=== PATIENT | female | born 1990 | race African-American/Black ===

== ENCOUNTER 2017-04-25 20:30 | Emergency (ER) | payer MEDICARE, MEDICAID, SELFPAY ==
[2017-04-25 20:31] VITALS: BP 94/60; PULSE 79; RESP 16; TEMP 36.4; O2SAT 98; BMI 24.6
--- NOTE | 2017-04-25 20:53 | EKG12_ITS ---
Test Reason : DIZZINESS Blood Pressure : / mmHG Vent. Rate : 078 BPM Atrial Rate : 078 BPM P-R Int : 154 ms QRS Dur : 086 ms QT Int : 388 ms P-R-T Axes : 065 062 039 degrees QTc Int : 442 ms Normal sinus rhythm with sinus arrhythmia Normal ECG Confirmed by JEFF العراقي, KAREN ([id number]), editor managing newspaper HEATHER NIXON ([id number]) on 04/29/2017 3:25:34 PM Referred By: LISANDRO Confirmed By:KAREN AGUILAR MD
[2017-04-25 20:59] LABS: Bacteria 0 SEEN /hpf (None Seen); Mucous, Urine 0 SEEN /hpf (<or=2+); Red Blood Cells-Urine 0 SEEN /hpf (0-5)
[2017-04-25 21:04] LABS: Color, Urine Yellow (Yellow); Glucose, Dipstick Normal (Normal); Ketone-Dipstick Negative (Negative); Leukocyte Esterase-Dipstick 25 /ul (Negative); Nitrite-Dipstick Negative (Negative); Occult Blood-Urine Negative /ul (Negative); Protein-Dipstick 15 mg/dl (Negative); Specific Gravity, Urine 1.005 (1.002-1.030); Urine Bilirubin Dipstick Negative (Negative); Urine Clarity Sl. Cloudy (Clear); Urine Urobilinogen 1 mg/dl (Normal)
[2017-04-25 21:12] LABS: Squamous Epithelial Cells - UA 10-25 SEEN /hpf (5-10); White Blood Cells 0-5 SEEN /hpf (0-5)
[2017-04-25 21:14] LABS: Absolute Lymphocyte Count 1.78 X10^3/ul (0.83-4.51); Absolute Neutrophil Count 9.1 X10^3/uL (2.0-7.7); Basophil# 0.02 X10^3/uL; Basophil% 0.2 % (0-1); Eosinophil# 0.05 X10^3/uL; Eosinophils% 0.4 % (0-5); Hematocrit 28.8 % (37-47); Hemoglobin 8.3 g/dl (12.0-15.0); Lymphocyte # 1.78 X10^3/ul (4.0); Lymphocyte % 15.1 % (19-41); Mean Corp Hgb Conc 28.8 g/gl (32-36); Mean Corpuscular Hgb 20.8 pg (27.0-32.0); Mean Corpuscular Volume 72.2 fL (81-99); Mean Platelet Vol. 9.7 fl (6.2-12.0); Monocyte# 0.69 X10^3/uL; Monocyte% 5.9 % (0-10); Neutrophil # 9.14 X10^3/uL (2.7-7.7); Neutrophil % 77.6 % (47-70); Platelet Count 172 K/mm3 (150-450); RBC Distribution Width CV 17.7 % (11.6-14.6); RBC Distribution Width SD 46.9 fl (35.1-43.9); Red Blood Count 3.99 M/mm3 (4.2-5.4); White Blood Count 11.8 K/mm3 (4.4-11.0)
[2017-04-25 21:15] LABS: Differential Indicated SCAN CRITERIA MET; POSITIVE COUNT NO; POSITIVE DIFFERENTIAL NO; POSITIVE MORPHOLOGY YES
[2017-04-25] MEDS: 0.9% Normal Saline 1,000 ML 1000 ML IV (21:22)
[2017-04-25 21:25] LABS: Anion Gap 10 (5-15); BUN 8 mg/dL (7-18); BUN/Creat Ratio 11.6 RATIO (10-20); Calcium,Total 8.6 mg/dL (8.5-10.1); Chloride 106 mmol/L (98-107); Creatinine, Serum 0.69 mg/dL (0.55-1.02); EST Glomerular Filtration Rate 109 mL/min (>60); Est Glom Filt Rate - Afr Amer 132 mL/min (>60); Estimated Creatinine Clearance 102.21 ml/min; Glucose 87 mg/dL (70-110); Potassium 3.9 mmol/L (3.5-5.1); Sodium Level 137 mmol/L (136-145)
[2017-04-25 21:30] LABS: Differential Comment SCANNED
--- NOTE | 2017-04-25 22:08 | ED.VISSUMM ---
- ER Visit Summary Date of Service: 04/25/17 Chief Complaint: Dizzy and low blood pressure History of Present Illness: The patient is a 26 F who is currently 37 weeks . She states she has had intermittent episodes of dizziness and near syncope for the past couple of weeks. Patient states her blood pressure normally runs low and more so when she is . She states her systolic blood pressure was 90 in the office last week. She has felt normal movement. She denies palpitations. Physical Examination: Blood pressure is 94/60, temperature 97.6, heart rate 76, respiratory rate 16, pulse ox 98% on room air. Patient sitting upright in bed no acute distress. She is alert and talkative. Heart is regular rate and rhythm. Lung sounds are clear. Abdomen is soft and gravid. No focal tenderness. Test Results: EKG is sinus at 78 with no sign of acute ischemia. CBC was a white count 11.8 with a hemoglobin of 8.3. Chemistry studies are unremarkable. Urinalysis shows no sign of acute infection. No ketones are noted. heart tones are 160. Emergency Department Course and Treatment: Patient was observed on electronic device monitor with no arrhythmias noted. She was given IV fluids. Repeat systolic blood pressures between 100 and 106 systolic. I spoke with Dr. Lee, on-call for Dr. Aragon. Patient has an appointment in the office tomorrow. She is to follow-up tomorrow as planned and may need to consider IV iron due to her anemia. She states that will all be discussed tomorrow. Patient voices her understanding and agreement. Treatment Plan: [] Disposition: Discharge Impression: 1. Hypotension, improved 2. Anemia 3. Third trimester 4. Intermittent dizziness This note was generated with [employer] dictation software. It may contain incorrect words, spelling, and punctuation that were not noted in review of the chart prior to signing ED Disposition - Plan for ED Patient: Disposition: Home or Assisted Living Chief Complaint: Dizziness Instructions: ED Anemia Type Not Specified, ED Dizziness UKO Referrals: Bren Soto MD [STAFF PHYSICIAN] - Keep Nicolasa appointment
--- NOTE | 2017-04-25 22:08 | ED.DEP ---
ED Disposition - Plan for ED Patient: Disposition: Home or Assisted Living Chief Complaint: Dizziness Instructions: ED Dizziness UKO, ED Anemia Type Not Specified Referrals: Bren Soto MD [STAFF PHYSICIAN] - Keep Nicolasa appointment
[2017-04-25 22:17] VITALS: BP 101/67; PULSE 81; RESP 16; O2SAT 99
--- NOTE | 2017-04-25 22:18 | ED.RN ---
REVIEWED D/C INSTRUCTIONS, FOLLOW UP CARE, AND S/S THAT WOULD WARRANT A RETURN TO THE ED WITH PT. PT VERBALIZED AN UNDERSTANDING AND DENIES FURTHER QUESTIONS FOR THIS RN. PT SKIN WARM AND DRY, RESP EVEN AND UNLABORED, PT A&O X 3, NO DISTRESS NOTED. PT AMBULATED OUT OF ED, GAIT STEADY.
== END 2017-04-25 22:19 | disposition home or self-care (01) ==
PROVIDERS: Emergency Provider Emergency Medicine; Family Provider Family Medicine; PCP Family Medicine
DX: O26.893 Other specified pregnancy related conditions, third trimester (principal); I95.9 Hypotension, unspecified; R42 Dizziness and giddiness; O99.013 Anemia complicating pregnancy, third trimester; Z3A.37 37 weeks gestation of pregnancy
CPT/HCPCS: 80048; 81001; 85025; 93005; 96360; 99284; J7030; A4216

== ENCOUNTER 2017-05-08 10:00 | Inpatient (IN) | payer MEDICARE, MEDICAID, SELFPAY ==
[2017-05-02 13:32] VITALS: BMI 25.6
[2017-05-08] VITALS (20 sets, daily range): BP systolic 79–98; BP diastolic 33–61; PULSE 54–77; RESP 12–18; TEMP 36.2–37.1; O2SAT 95–100; BMI 25.6
[2017-05-08] MEDS: 0.9% Saline Lock 10 ML Syringe IV (10:15)
[2017-05-08] MEDS: Lactated Ringers 1,000 ML 999 ML IV (10:15)
[2017-05-08 10:39] LABS: Absolute Lymphocyte Count 2.24 X10^3/ul (0.83-4.51); Absolute Neutrophil Count 10.4 X10^3/uL (2.0-7.7); Basophil# 0.03 X10^3/uL; Basophil% 0.2 % (0-1); Differential Indicated SCAN CRITERIA MET; Eosinophil# 0.06 X10^3/uL; Eosinophils% 0.4 % (0-5); Hematocrit 28.2 % (37-47); Hemoglobin 8.4 g/dl (12.0-15.0); Lymphocyte # 2.24 X10^3/ul (4.0); Lymphocyte % 15.9 % (19-41); Mean Corp Hgb Conc 29.8 g/gl (32-36); Mean Corpuscular Hgb 21.6 pg (27.0-32.0); Mean Corpuscular Volume 72.7 fL (81-99); Mean Platelet Vol. 10.8 fl (6.2-12.0); Monocyte# 0.99 X10^3/uL; Neutrophil # 10.43 X10^3/uL (2.7-7.7); Neutrophil % 73.8 % (47-70); POSITIVE COUNT YES; POSITIVE DIFFERENTIAL NO; POSITIVE MORPHOLOGY YES; Platelet Count 233 K/mm3 (150-450); RBC Distribution Width CV 18.5 % (11.6-14.6); Red Blood Count 3.88 M/mm3 (4.2-5.4); White Blood Count 14.1 K/mm3 (4.4-11.0)
[2017-05-08 10:57] LABS: Anisocytosis 2+
[2017-05-08 10:58] LABS: Polychromasia 1+
[2017-05-08] MEDS: Lactated Ringers 1,000 ML 150 ML IV (11:18)
[2017-05-08] MEDS: Sodium Citrate/Citric Acid 30 ML UDC PO (11:43)
[2017-05-08] MEDS: Cefazolin 2 GM in 0.9% Normal Saline 100 ML IV (11:53)
[2017-05-08] MEDS: Oxytocin 30 units/NS 500 ml 30 UNITS/500 ML IV.SOLN 167 UNITS IV (12:34)
--- NOTE | 2017-05-08 13:07 | OP.PCM_ITS ---
Operative Report Date of Procedure: 05/08/17 Surgeon: Dr. Bren Soto Chief Power Dispatcher: DANIAL Pérez Procedure performed: Repeat Low Transverse section Anesthesia: Spinal Preoperative diagnosis: Term gestation 39 weeks gestation for an elective repeat section Postoperative Diagnosis: same- live male Findings: Live male infant born without complication. Clear fluid. Delayed cord clamping performed. Normal tubes and ovaries bilaterally. Good hemostasis throughout case. 2 Peripheral IVs started PRE OP due to anemia- Minimal blood loss during case. EBL: 600 cc Implantable devices: None Operative note: After informed consent was obtained the patient was taken to the operating room she was given spinal anesthesia. He was placed in the supine position. She was then prepped and draped in normal sterile fashion. Once spinal anesthesia was found to be adequate skin incision was made with a scalpel in a elliptical fashion to excise old scar. Incision was carried down to the underlying layer of the fascia. Fascia was then incised midline with scalpel and extended laterally using curved baker. 2 straight Cristian's were placed in the superior aspect of the fascial edge and the rectus muscles were dissected off sharply. Attention was then turned to the inferior aspect where again the fascial edge was grasped with 2 straight Clinton clamps tented up and the rectus muscle dissected off sharply. At this time the rectus muscles were grasped in the midline using 2 Allis clamps and scalpel was used to separate the rectus muscles. Using blunt force the peritoneum was then entered. Metzenbaums were used to take down the rectus muscles inferiorly as well as the peritoneum. At this time the vesicouterine peritoneum was identified. Metzenbaum scissors were used to create a bladder flap and then taken down digitally. Uterine incision was made in a low transverse fashion with the scalpel and then entered bluntly. Gentle opposing traction was placed to extend the uterine incision. The membranes were ruptured amniotic fluid clear. 's head was then brought to the uterine incision was delivered atraumatically followed by the rest infant's body. At this time delayed cord clamping was performed mouth nose were suctioned. was then handed to the waiting nursery team. The placenta was then removed with gentle traction. The uterus was removed from the intra-abdominal cavity is wrapped in a moist lap. He was cleared of all clots and debris using a moist lap. Ring clamps were placed on the uterine angles. #1 Vicryl suture was used in a running locked fashion for the first layer. Posterior culdesac cleared of clots. At this time then the uterus was placed back into abdominal cavity uterine incision was evaluated and noted to be of good hemostasis. Tubes and ovaries were evaluated they were normal. Great hemostasis was appreciated at this time the uterine incision was again evaluated good hemostasis was appreciated. Jocy placed over each layer. The peritoneum was grasped with Kellys. Peritoneum was reapproximated using #2 Vicryl suture in a running fashion. Muscle was then reapproximated using #2 Vicryl in an interrupted mattress suture fashion. The fascia was then reapproximated using #1 Vicryl in a running fashion. Subcutaneous layer was evaluated and Bovie was used for any small oozing that was noted per #2-0 plain gut suture was then used to reapproximate the subcutaneous layer 4-0 Vicryl on a Bryant needle was used to reapproximate the skin in a subcutaneous fashion. Dry sterile dressing was applied. Instrument lap needle count were correct ?2. Anticipated normal postoperative course for this patient.
[2017-05-08] MEDS: Lactated Ringers 1,000 ML 100 ML IV ×3 (13:10→21:14)
[2017-05-08] MEDS: Ondansetron 4 MG/2 ML Vial IV (16:44)
[2017-05-09] VITALS (17 sets, daily range): BP systolic 87–105; BP diastolic 43–57; PULSE 60–89; RESP 16–20; TEMP 36.4–37.1; O2SAT 97–100
[2017-05-09] MEDS: Ketorolac 30 MG/ML Syringe IV ×4 (00:26→21:42)
[2017-05-09] MEDS: 0.9% Saline Lock 10 ML Syringe IV ×4 (00:26→21:42)
[2017-05-09] MEDS: Lactated Ringers 1,000 ML 100 ML IV (06:32)
[2017-05-09 06:51] LABS: Hematocrit 22.3 % (37-47); Hemoglobin 6.5 g/dl (12.0-15.0); Mean Corp Hgb Conc 29.1 g/gl (32-36); Mean Corpuscular Hgb 21.3 pg (27.0-32.0); Mean Corpuscular Volume 73.1 fL (81-99); Mean Platelet Vol. 8.9 fl (6.2-12.0); Platelet Count 157 K/mm3 (150-450); RBC Distribution Width CV 18.4 % (11.6-14.6); RBC Distribution Width SD 48.1 fl (35.1-43.9); Red Blood Count 3.05 M/mm3 (4.2-5.4); White Blood Count 15.5 K/mm3 (4.4-11.0)
[2017-05-09 06:57] LABS: Scan Indicated on CBC? Y/N YES- FLAGS NOTED
[2017-05-09 07:28] LABS: Differential Comment SCAN
[2017-05-09] MEDS: Ferrous Sulfate 325 MG Tablet PO ×3 (08:16→17:50)
--- NOTE | 2017-05-09 08:51 | PCM.PN.OB ---
Subjective: pt seen at bedside, doing well. pt reports good pain control. lochia mild. Jara in place. pt reports passing flatus. Pt denies CP, SOB, dizziness or palpitations - Physical Exam General: Alert, Oriented x3 Abdomen: Soft, Non-Distended, - - fundus firm. Incision dressing with small area old dark blood noted but otherwise dry. Extremities: No Calf Tenderness Vital Signs Temp Pulse Resp BP Pulse Ox 98.6 F 60 16 91/44 L 100 05/09/17 08:15 05/09/17 08:15 05/09/17 08:15 05/09/17 08:15 05/09/17 08:15 Oxygen Delivery Method Room Air Weight: 65.7 kg Body Mass Index (BMI) 25.6 Intake and Output for Last 24 Hours 05/07/17 05/08/17 05/09/17 23:59 23:59 23:59 Intake Total 5379 / 5379 1689 / 1689 Output Total 700 / 700 1100 / 1100 Balance 4679 / 4679 589 / 589 Laboratory Tests Past 24 Hrs 05/08/17 05/08/17 05/08/17 10:10 10:10 10:10 WBC 14.1 H RBC 3.88 L Hgb 8.4 L Hct 28.2 L MCV 72.7 L MCH 21.6 L MCHC 29.8 L RDW 18.5 H RDW Differential 47.0 H Plt Count 233 MPV 10.8 Immature Gran % (Auto) 2.700 H Neut % (Auto) 73.8 H Lymph % (Auto) 15.9 L [place] % (Auto) 7.0 Eos % (Auto) 0.4 Baso % (Auto) 0.2 Absolute Neuts (auto) 10.4 H Absolute Lymphs (auto) 2.24 Total Counted Not Reportable Differential Comment Diff Path Review May foll Polychromasia 1+ Anisocytosis 2+ Blood Type AB POSITIVE Antibody Screen NEGATIVE Crossmatch See Detail 05/09/17 06:35 WBC 15.5 H RBC 3.05 L Hgb 6.5 L Hct 22.3 L MCV 73.1 L MCH 21.3 L MCHC 29.1 L RDW 18.4 H RDW Differential 48.1 H Plt Count 157 MPV 8.9 Immature Gran % (Auto) Neut % (Auto) Lymph % (Auto) [place] % (Auto) Eos % (Auto) Baso % (Auto) Absolute Neuts (auto) Absolute Lymphs (auto) Total Counted Differential Comment SCAN Diff Path Review Polychromasia Anisocytosis Blood Type Antibody Screen Crossmatch Assessment/Plan POD#1, doing well- acute on Chronic anemia- asymptomatic 1) discussed PRBC transfusion low hg/hct- benefits of receiving blood reviewed with patient. Pt currently receiving IV iron with [facility] 2) will give 2u PRBC 3) dc jara 4) ambulation 5) pain mgmt 6) recheck CBC 4 hrs after last unit
[2017-05-09 09:19] LABS: Pathologist Review Reviewed
[2017-05-09] MEDS: Docusate Sodium 100 MG Capsule PO (09:55)
[2017-05-09 19:06] LABS: Hemoglobin 9.1 g/dl (12.0-15.0); Mean Corp Hgb Conc 31.4 g/gl (32-36); Mean Corpuscular Hgb 24.1 pg (27.0-32.0); Mean Corpuscular Volume 76.7 fL (81-99); Mean Platelet Vol. 10.1 fl (6.2-12.0); Platelet Count 191 K/mm3 (150-450); RBC Distribution Width CV 18.8 % (11.6-14.6); RBC Distribution Width SD 49.3 fl (35.1-43.9); Red Blood Count 3.78 M/mm3 (4.2-5.4); Scan Indicated on CBC? Y/N NO; White Blood Count 15.3 K/mm3 (4.4-11.0)
[2017-05-10] MEDS: Ketorolac 30 MG/ML Syringe IV ×2 (02:52→09:35)
[2017-05-10] MEDS: 0.9% Saline Lock 10 ML Syringe IV ×2 (02:52→02:53)
[2017-05-10 03:00] VITALS: BP 103/56; PULSE 68; RESP 16; TEMP 36.6
[2017-05-10 05:26] LABS: Hematocrit 28.4 % (37-47); Hemoglobin 8.7 g/dl (12.0-15.0); Mean Corp Hgb Conc 30.6 g/gl (32-36); Mean Corpuscular Hgb 23.5 pg (27.0-32.0); Mean Corpuscular Volume 76.8 fL (81-99); Mean Platelet Vol. 9.2 fl (6.2-12.0); Platelet Count 153 K/mm3 (150-450); RBC Distribution Width CV 18.8 % (11.6-14.6); RBC Distribution Width SD 51.2 fl (35.1-43.9)
[2017-05-10 05:28] LABS: Scan Indicated on CBC? Y/N NO
[2017-05-10 08:00] VITALS: BP 102/57; PULSE 61; RESP 16; TEMP 36.8; O2SAT 98
--- NOTE | 2017-05-10 08:52 | PCM.PN.OB ---
Subjective: pain well controlled, average lochia - Physical Exam General: Alert, Cooperative, No apparent distress Abdomen: Soft, Non-Distended, Tender - appropriately Skin: - - bandage w/ some dried sanguinous blood Vital Signs Temp Pulse Resp BP Pulse Ox 97.8 F 68 16 103/56 L 98 05/10/17 03:00 05/10/17 03:00 05/10/17 03:00 05/10/17 03:00 05/09/17 15:10 Oxygen Delivery Method Room Air Weight: 65.7 kg Body Mass Index (BMI) 25.6 Intake and Output for Last 24 Hours 05/08/17 05/09/17 05/10/17 23:59 23:59 23:59 Intake Total 5379 / 5379 4521 / 4521 Output Total 700 / 700 2850 / 2850 Balance 4679 / 4679 1671 / 1671 Laboratory Tests Past 24 Hrs 05/08/17 05/08/17 05/09/17 10:10 10:10 18:50 WBC 15.3 H RBC 3.78 L Hgb 9.1 L Hct 29.0 L MCV 76.7 L MCH 24.1 L MCHC 31.4 L RDW 18.8 H RDW Differential 49.3 H Plt Count 191 MPV 10.1 Diff Path Review Reviewed Crossmatch See Detail 05/10/17 05:15 WBC 15.0 H RBC 3.70 L Hgb 8.7 L Hct 28.4 L MCV 76.8 L MCH 23.5 L MCHC 30.6 L RDW 18.8 H RDW Differential 51.2 H Plt Count 153 MPV 9.2 Diff Path Review Crossmatch Assessment/Plan PPD#2 doing well pumping some breastmilk desires d/c home
--- NOTE | 2017-05-10 08:54 | PCM.PN.OB ---
Subjective: Denies GONZALEZ or SOB, no cough. No CP or palpitations. No lightheadedness. + flatus, ebony. regular diet - Physical Exam General: Alert, Cooperative, No apparent distress Abdomen: Soft, Non-Distended, Tender - appropriately Skin: Incision - some sanguinous drainage on bandage Vital Signs Temp Pulse Resp BP Pulse Ox 97.8 F 68 16 103/56 L 98 05/10/17 03:00 05/10/17 03:00 05/10/17 03:00 05/10/17 03:00 05/09/17 15:10 Oxygen Delivery Method Room Air Weight: 65.7 kg Body Mass Index (BMI) 25.6 Intake and Output for Last 24 Hours 05/08/17 05/09/17 05/10/17 23:59 23:59 23:59 Intake Total 5379 / 5379 4521 / 4521 Output Total 700 / 700 2850 / 2850 Balance 4679 / 4679 1671 / 1671 Laboratory Tests Past 24 Hrs 05/08/17 05/08/17 05/09/17 10:10 10:10 18:50 WBC 15.3 H RBC 3.78 L Hgb 9.1 L Hct 29.0 L MCV 76.7 L MCH 24.1 L MCHC 31.4 L RDW 18.8 H RDW Differential 49.3 H Plt Count 191 MPV 10.1 Diff Path Review Reviewed Crossmatch See Detail 05/10/17 05:15 WBC 15.0 H RBC 3.70 L Hgb 8.7 L Hct 28.4 L MCV 76.8 L MCH 23.5 L MCHC 30.6 L RDW 18.8 H RDW Differential 51.2 H Plt Count 153 MPV 9.2 Diff Path Review Crossmatch Assessment/Plan POD#2 doing well ready for d/c chronic anemia, s/p transfusion 2 units, HGB same as preop. F/u postop for IVfe infant doing well
--- NOTE | 2017-05-10 09:05 | DCINST_ITS ---
Discharge Diet: No Restrictions Discharge Activity: Return to Normal Activity, May Not Drive - for 2 weeks, May not drive while taking narcotic pain medications., May Shower, May Take a Tub Bath - in 7 days. May resume sexual activity in: 4-6 weeks Lifting Restrictions: 20 pounds Additional Activity Instructions:: Nothing in the vagina for 4-6 weeks. You may return to work/school in 6 weeks. Call your doctor if your incision/area has: Continuous Slow Oozing, Sudden Increased Bleeding, Increased Pain/ Swelling, Increased Redness, Foul Smelling Discharge Call your doctor if you observe: Fever of 101 or Higher, Using more than one pad per hour - for 2 hours Suture Line Care: Avoid Pulling/Pushing, Avoid Pinching/Bending Cleanse incision/area with: Keep Dressing Clean & Dry Additional Instructions: If you experience any of the following, contact your healthcare provider. * Bleeding that soaks a pad every hour for 2 hours * Fever 100.4 or higher * Unrelieved incision or abdominal pain * Swelling, redness, discharge or bleeding from your incision or episiotomy site * Your incision begins to separate * Problems urinating (including inability to urinate or burning while urinating) . * Visual changes * Severe headache * Flu-like symptoms * Pain or redness in one of both of your breasts * Pain, warmth, tenderness or swelling in your legs, especially the calf area * Frequent nausea and vomiting * Symptoms of depression or anxiety If you experience any of the following, call 911 or go to the nearest Emergency Room. * Chest pain * Problems breathing * Seizure activity * Partial or complete paralysis of a body part, slurred speech, weakness or drooping of the face, or a sudden inability to walk or hold your balance Allergies/Adverse Reactions: Allergies No Known Allergies Allergy (Verified 04/25/17 20:33) Medications to take at Discharge Docusate Sodium [Colace] 100 mg PO BID PRN PRN #30 cap 05/10/17 Ibuprofen [Motrin] 800 mg PO TID PRN PRN #60 tab 05/10/17 Oxycodone HCl/Acetaminophen [Percocet 5/325] 1 - 2 tablet PO Q6H PRN PRN 7 Days #28 tablet 05/10/17 Pnv95/Ferrous Fumarate/FA [ Formula] 1 ea PO DAILY #30 tab 05/10/17 The following prescriptions were given: Oxycodone HCl/Acetaminophen [Percocet 5/325] 1 - 2 tablet PO Q6H PRN PRN 7 Days #28 tablet PRN Reason: Pain Docusate Sodium [Colace] 100 mg PO BID PRN PRN #30 cap PRN Reason: Constipation Ibuprofen [Motrin] 800 mg PO TID PRN PRN #60 tab PRN Reason: Pain Pnv95/Ferrous Fumarate/FA [ Formula] 1 ea PO DAILY #30 tab Follow-Up: Call to make an appointment with your doctor for an incision check in 1-2 weeks. You will also need a 6 week post- follow up appointment. Please Follow Up With: Bren Soto MD - Call to make an appointment for an incision check in 1-2 [phone] When: You will need a post check in 6 weeks. Primary Care Physician: Miquel Weller MD [Primary Care Provider] -
[2017-05-10] MEDS: Docusate Sodium 100 MG Capsule PO (09:36)
[2017-05-10] MEDS: Ferrous Sulfate 325 MG Tablet PO ×2 (09:36→13:22)
[2017-05-10 13:00] VITALS: BP 111/56; PULSE 73; RESP 16; TEMP 36.7; O2SAT 97
--- NOTE | 2017-05-10 14:15 | NURSING ---
baby bands verified by nurse and mother. mother signed baby discharge sheet
--- NOTE | 2017-05-11 10:34 | PCM.DC.SUM ---
Discharge Date and Diagnosis Date of Admission: 05/08/17 Date of Discharge: 05/10/17 Hospital Course and Treatment Operations: - - Low transverse section Via Pfannenstiel skin incision Procedures: None Summary of Care Provided: The patient is a 26 year old female admitted for repeat section. This was performed on 05/08/2017 without difficulty. She had chronic iron deficiency anemia. Her hemoglobin dropped postoperatively. Remained asymptomatic but her hematocrit was under 20. She was transfused 2 units. Her hemoglobin and hematocrit stabilized to near preop levels. She was discharged home on postoperative day #2 at her request. She was tolerating anemia well. She is to continue vitamins. She is to also follow-up for IV iron supplementation. He was given routine instructions and prescriptions and she is to follow-up in our office in 1-2 and 6 weeks or as needed. [] Discharge Diet: No Restrictions Discharge Activity: Return to Normal Activity, May Not Drive - for 2 weeks, May not drive while taking narcotic pain medications., May Shower, May Take a Tub Bath - in 7 days. May resume sexual activity in: 4-6 weeks Additional Activity Instructions:: Nothing in the vagina for 4-6 weeks. You may return to work/school in 6 weeks. Call your doctor if your incision/area has: Continuous Slow Oozing, Sudden Increased Bleeding, Increased Pain/ Swelling, Increased Redness, Foul Smelling Discharge Call your doctor if you observe: Fever of 101 or Higher, Using more than one pad per hour - for 2 hours Suture Line Care: Avoid Pulling/Pushing, Avoid Pinching/Bending Cleanse incision/area with: Keep Dressing Clean & Dry Home Medications: Medications to take at Discharge Docusate Sodium [Colace] 100 mg PO BID PRN PRN #30 cap 05/10/17 Ibuprofen [Motrin] 800 mg PO TID PRN PRN #60 tab 05/10/17 Oxycodone HCl/Acetaminophen [Percocet 5/325] 1 - 2 tablet PO Q6H PRN PRN 7 Days #28 tablet 05/10/17 Pnv95/Ferrous Fumarate/FA [ Formula] 1 ea PO DAILY #30 tab 05/10/17 Following Prescrptions Were Given to Patient: Oxycodone HCl/Acetaminophen [Percocet 5/325] 1 - 2 tablet PO Q6H PRN PRN 7 Days #28 tablet PRN Reason: Pain Docusate Sodium [Colace] 100 mg PO BID PRN PRN #30 cap PRN Reason: Constipation Ibuprofen [Motrin] 800 mg PO TID PRN PRN #60 tab PRN Reason: Pain Pnv95/Ferrous Fumarate/FA [ Formula] 1 ea PO DAILY #30 tab Primary Care Physician: Miquel Weller MD [Primary Care Provider] - Please Follow Up With: Bren Soto MD When: Call to make an appointment for an incision check in 1-2 weeks. Meaningful Use Info Meaningful Use Diagnoses (Choose all that apply): None applicable
== END 2017-05-10 14:25 | disposition home or self-care (01) | DRG 765 ==
PROVIDERS: Advanced Practice Midwife; Admitting Provider Obstetrics & Gynecology; Family Provider Family Medicine; PCP Family Medicine; Visit Provider Obstetrics & Gynecology
DX: O34.211 Maternal care for low transverse scar from previous cesarean delivery (principal); D62 Acute posthemorrhagic anemia; O99.02 Anemia complicating childbirth; D50.9 Iron deficiency anemia, unspecified; Z3A.39 39 weeks gestation of pregnancy; Z37.0 Single live birth
CPT/HCPCS: 85025; 85027; 86850; 86900; 86920; 86922; 94762; 99218; J7040; J7120; P9016; 90686; A4216; G0378; J2405

== ENCOUNTER 2017-05-13 19:15 | Inpatient (IN) | payer MEDICARE, MEDICAID, SELFPAY ==
[2017-05-13] VITALS (11 sets, daily range): BP systolic 122–160; BP diastolic 83–108; PULSE 51–66; RESP 12–20; TEMP 36.6–36.7; O2SAT 98–100; BMI 24.8
--- NOTE | 2017-05-13 19:26 | NURSING ---
RN CALLED FOR EKG,L PULLED OLD EKG'S FOR
[2017-05-13 21:28] LABS: Bacteria 0 SEEN /hpf (None Seen); Mucous, Urine 0 SEEN /hpf (<or=2+)
[2017-05-13 21:32] LABS: Color, Urine Red (Yellow); Glucose, Dipstick Normal (Normal); Ketone-Dipstick 5 mg/dl (Negative); Leukocyte Esterase-Dipstick 100 /ul (Negative); Nitrite-Dipstick Negative (Negative); Occult Blood-Urine 250 /ul (Negative); Protein-Dipstick 100 mg/dl (Negative); Urine Bilirubin Dipstick Negative (Negative); Urine Clarity Cloudy (Clear); Urine Urobilinogen 4 mg/dl (Normal)
[2017-05-13 21:39] LABS: Absolute Lymphocyte Count 2.16 X10^3/ul (0.83-4.51); Absolute Neutrophil Count 6.9 X10^3/uL (2.0-7.7); Basophil# 0.02 X10^3/uL; Basophil% 0.2 % (0-1); Differential Indicated SCAN CRITERIA MET; Eosinophil# 0.14 X10^3/uL; Eosinophils% 1.4 % (0-5); Hematocrit 33.1 % (37-47); Lymphocyte # 2.16 X10^3/ul (4.0); Lymphocyte % 22.3 % (19-41); Mean Corp Hgb Conc 30.2 g/gl (32-36); Mean Corpuscular Hgb 23.6 pg (27.0-32.0); Mean Corpuscular Volume 78.3 fL (81-99); Mean Platelet Vol. 9.8 fl (6.2-12.0); Monocyte# 0.44 X10^3/uL; Monocyte% 4.5 % (0-10); Neutrophil # 6.89 X10^3/uL (2.7-7.7); Neutrophil % 71.2 % (47-70); POSITIVE COUNT NO; POSITIVE DIFFERENTIAL NO; POSITIVE MORPHOLOGY YES; Platelet Count 217 K/mm3 (150-450); RBC Distribution Width SD 55.1 fl (35.1-43.9); Red Blood Count 4.23 M/mm3 (4.2-5.4); White Blood Count 9.7 K/mm3 (4.4-11.0)
[2017-05-13 21:40] LABS: Prothrombin Time (Protime)PT. 13.2 SECONDS (11.7-14.9)
[2017-05-13 21:41] LABS: Red Blood Cells-Urine > 100 SEEN /hpf (0-5); White Blood Cells 10-25 SEEN /hpf (0-5)
[2017-05-13 21:41] LABS: Partial Thromboplast Time 30.9 Seconds (24.1-36.2)
[2017-05-13 21:42] LABS: Squamous Epithelial Cells - UA 0-5 SEEN /hpf (5-10)
[2017-05-13 21:51] LABS: ALB/GLOB Ratio 0.7 RATIO (0.9-2.4); AST(SGOT) 49 U/L (15-37); Alanine Aminotransfer ALT/SGPT 77 U/L (13-56); Albumin, Serum 2.9 g/dL (3.2-5.0); Alkaline Phosphatase 117 U/L (45-117); Anion Gap 5 (5-15); BUN 12 mg/dL (7-18); BUN/Creat Ratio 18.1 RATIO (10-20); Calcium,Total 8.4 mg/dL (8.5-10.1); Chloride 109 mmol/L (98-107); Creatinine, Serum 0.66 mg/dL (0.55-1.02); EST Glomerular Filtration Rate 114 mL/min (>60); Est Glom Filt Rate - Afr Amer 138 mL/min (>60); Estimated Creatinine Clearance 106.85 ml/min; Globulin 4.1 g/dL (2.2-4.2); Glucose 96 mg/dL (74-106); Potassium 3.4 mmol/L (3.5-5.1); Sodium Level 142 mmol/L (136-145); Uric Acid 5.6 mg/dL (2.6-6.0)
--- NOTE | 2017-05-13 21:51 | ED.RN ---
VERBAL ORDER GIVEN TO PLACE PATIENT SUPINE, VITALS q15 X4 TIMES PER DR. JURADO WHO SPOKE WITH OB/ INDUSTRIAL MANUFACTURING TECHNICIAN AT THIS TIME
[2017-05-13 22:17] LABS: Polychromasia RARE
--- NOTE | 2017-05-13 22:17 | ED.VISSUMM ---
- ER Visit Summary Date of Service: 05/13/17 Chief Complaint: Severe global headache that started 24 hours ago History of Present Illness: The patient is a 26 F who had a 5 days ago presents with severe global headache for the past 24 hours. The headache is not positional. She denies any double vision, blurred vision loss of vision. She denies fever, chills or night sweats. She denies runny nose, postnasal drainage, earache or sore throat. She denies shortness of breath, cough or dyspnea on exertion. She denies any chest discomfort presently. She states she had tightness at home. She denies any leg pain, swelling or discoloration. She denies any abdominal pain, nausea, vomiting or diarrhea. She denies any dysuria, frequency, urgency or hematuria. She states her normal blood pressure is in the 80s. Prior records were reviewed and she is correct blood pressure varied between 85-92 systolic. Physical Examination: Appears uncomfortable. Head is atraumatic no cephalic. Pupils equal round reactive. Extra muscle intact. Funduscopic exam reveals normal cup-to-disc ratio. There is no papilledema noted. TMs are normal. Nares are patent with no discharge. Posterior pharyngeal erythema or exudate. Uvula is midline. Heart is slow and regular without murmur, gallop or rub. Lungs are clear to auscultation. Abdomen is soft nontender. Patient is alert and oriented ?3. Motor is 5 over 5. Sensory is intact. DTRs are 2+ and symmetric with no clonus or Babinski sign. Cranial 2 through 12 are intact. Cerebellar testing is normal. Initial blood pressure was 139/84. Test Results: CBC is remarkable for microscopic anemia. Electrode panel was potassium 3.4. ALT and AST are elevated. Uric acid levels normal. Coags normal. Urine is positive for protein and pyuria. Specimen is not contaminated. There is no bacteria. Emergency Department Course and Treatment: Based on elevated blood pressure and physical findings Dr. Lee cash control specialist for Dr. Aragon was contacted. She repeated repeat blood pressures in dark room with patient supine. Her most recent blood pressure is 153/94. All of her blood pressures were elevated. Treatment Plan: Transfer to [facility] and initiate magnesium drip after bolus. Disposition: Admit to [facility] Impression: preeclampsia This note was generated with [employer] dictation software. It may contain incorrect words, spelling, and punctuation that were not noted in review of the chart prior to signing ED Disposition - Plan for ED Patient: Chief Complaint: Headache Referrals: Miquel Weller MD [Primary Care Provider] -
[2017-05-13 22:18] LABS: Hypochromasia 1+; Microcytosis 1+
--- NOTE | 2017-05-13 22:18 | EKG12_ITS ---
Test Reason : CP Blood Pressure : / mmHG Vent. Rate : 052 BPM Atrial Rate : 052 BPM P-R Int : 154 ms QRS Dur : 088 ms QT Int : 436 ms P-R-T Axes : 066 079 065 degrees QTc Int : 405 ms Sinus bradycardia Otherwise normal ECG Confirmed by CAYLA العراقي, NETTA ([id number]), loan expeditor HEATHER NIXON ([id number]) on 05/15/2017 1:46:45 PM Referred By: JONATHAN Confirmed By:NETTA KULKARNI MD
[2017-05-13 22:19] LABS: Anisocytosis 2+; Ovalocyte RARE; Tear Drop Cell RARE
[2017-05-13 22:20] LABS: Crenated RBC RARE
--- NOTE | 2017-05-13 22:21 | ED.DCSUM_ITS ---
- ER Visit Summary Date of Service: 05/13/17 Chief Complaint: Severe global headache that started 24 hours ago History of Present Illness: The patient is a 26 F who had a 5 days ago presents with severe global headache for the past 24 hours. The headache is not positional. She denies any double vision, blurred vision loss of vision. She denies fever, chills or night sweats. She denies runny nose, postnasal drainage, earache or sore throat. She denies shortness of breath, cough or dyspnea on exertion. She denies any chest discomfort presently. She states she had tightness at home. She denies any leg pain, swelling or discoloration. She denies any abdominal pain, nausea, vomiting or diarrhea. She denies any dysuria, frequency, urgency or hematuria. She states her normal blood pressure is in the 80s. Prior records were reviewed and she is correct blood pressure varied between 85-92 systolic. Physical Examination: Appears uncomfortable. Head is atraumatic no cephalic. Pupils equal round reactive. Extra muscle intact. Funduscopic exam reveals normal cup-to-disc ratio. There is no papilledema noted. TMs are normal. Nares are patent with no discharge. Posterior pharyngeal erythema or exudate. Uvula is midline. Heart is slow and regular without murmur, gallop or rub. Lungs are clear to auscultation. Abdomen is soft nontender. Patient is alert and oriented ?3. Motor is 5 over 5. Sensory is intact. DTRs are 2+ and symmetric with no clonus or Babinski sign. Cranial 2 through 12 are intact. Cerebellar testing is normal. Initial blood pressure was 139/84. Test Results: CBC is remarkable for microscopic anemia. Electrode panel was potassium 3.4. ALT and AST are elevated. Uric acid levels normal. Coags normal. Urine is positive for protein and pyuria. Specimen is not contaminated. There is no bacteria. Emergency Department Course and Treatment: Based on elevated blood pressure and physical findings Dr. Lee pilot control operator for Dr. Aragon was contacted. She repeated repeat blood pressures in dark room with patient supine. Her most recent blood pressure is 153/94. All of her blood pressures were elevated. Treatment Plan: Transfer to [facility] and initiate magnesium drip after bolus. Disposition: Admit to [facility] Impression: preeclampsia This note was generated with [employer] dictation software. It may contain incorrect words, spelling, and punctuation that were not noted in review of the chart prior to signing ED Disposition - Plan for ED Patient: Chief Complaint: Headache Referrals: Miquel Weller MD [Primary Care Provider] -
[2017-05-13] MEDS: Magnesium Sulfate 20 GM/500 ML BAG IV (23:25)
[2017-05-13] MEDS: Ibuprofen 600 MG Tablet PO (23:35)
[2017-05-14] VITALS (23 sets, daily range): BP systolic 99–129; BP diastolic 56–84; PULSE 62–87; RESP 12–18; TEMP 36.1–36.6; O2SAT 97–100
[2017-05-14] MEDS: Magnesium Sulfate 20 GM/500 ML BAG IV ×2 (07:08→18:06)
[2017-05-14] MEDS: Senna/Docusate Sodium 1 Tablet PO (08:31)
--- NOTE | 2017-05-14 08:38 | PCM.HP.OB ---
History Date of Admission: 05/14/17 History of this : Patient presented to ED c/o headache 09/01. She is s/p section. This am patient states headache is resolved & she feels well. Allergies No Known Allergies Allergy (Verified 05/13/17 19:19) Current Medications Acetaminophen (Tylenol) 1,000 mg PO Q8H PRN PRN Reason: MILD PAIN (1-3/10) Bisacodyl (Dulcolax) 10 mg RECTAL UD PRN PRN Reason: If no BM Hydrocortisone (Hytone) 1 applic TOPICAL TID PRN PRN; Protocol PRN Reason: Discomfort Magnesium Sulfate (20gm/500ml) 20 gm in 500 mls @ 50 mls/hr IV .Q10H ROCIO PRN Reason: 2 GM/HR Last Admin: 05/14/17 07:08 Dose: 50 mls/hr Ibuprofen (Motrin) 600 mg PO Q6H PRN PRN PRN Reason: Mild Pain (1-3/10) Last Admin: 05/13/17 23:35 Dose: 600 mg Ondansetron HCl (Zofran) 4 mg IV Q4H PRN PRN PRN Reason: Nausea Oxycodone HCl (Oxyir) 5 - 10 mg PO Q4H PRN PRN PRN Reason: MOD-SEVERE PAIN (4-10/10) Senna/Docusate Sodium (Senokot-S, Naomi-Colace) 0 tablet PO DAILY PRN PRN Reason: Constipation Last Admin: 05/14/17 08:31 Dose: 1 tablet Simethicone (Mylicon) 80 mg PO PCHS PRN PRN Reason: Indigestion/stomach pain Sodium Chloride () 5 - 15 ml IV UD PRN PRN Reason: SALINE FLUSH Alcohol: None Drug Use: none Physical Exam Vitals: Vital Signs Temp Pulse Resp BP Pulse Ox 97.0 F L 77 18 107/73 99 05/14/17 08:31 05/14/17 08:31 05/14/17 08:31 05/14/17 08:31 05/14/17 08:31 General: Alert, Oriented x3 Abdomen: Soft, Non Tender, Non-Distended - ff mid & below umb; incision - well healed Assessment/Plan 26yo female re-admitted 6 days s/p section with PP preeclampsia PP preE - on magnesium for 24 hours, BPs now normal Routine care
--- NOTE | 2017-05-14 19:30 | NURSING ---
shift change. mag sulfate verified with Michell DONATO
[2017-05-14] MEDS: 0.9% Saline Lock 10 ML Syringe IV (23:03)
[2017-05-14] MEDS: Ibuprofen 600 MG Tablet PO (23:09)
[2017-05-15 03:40] VITALS: BP 117/77; PULSE 68; RESP 16; TEMP 36.6; O2SAT 98
[2017-05-15 06:28] LABS: AST(SGOT) 34 U/L (15-37); Alanine Aminotransfer ALT/SGPT 56 U/L (13-56); Albumin, Serum 2.8 g/dL (3.2-5.0); Alkaline Phosphatase 109 U/L (45-117); Bilirubin, Direct 0.05 mg/dL (0.00-0.30); Globulin 3.8 g/dL (2.2-4.2); Protein, Total 6.6 g/dL (6.4-8.2)
[2017-05-15 06:54] LABS: Hematocrit 36.3 % (37-47); Hemoglobin 10.8 g/dl (12.0-15.0); Mean Corp Hgb Conc 29.8 g/gl (32-36); Mean Corpuscular Hgb 23.3 pg (27.0-32.0); Mean Corpuscular Volume 78.2 fL (81-99); Platelet Count 260 K/mm3 (150-450); RBC Distribution Width CV 21.3 % (11.6-14.6); RBC Distribution Width SD 56.4 fl (35.1-43.9); Red Blood Count 4.64 M/mm3 (4.2-5.4)
[2017-05-15 07:00] LABS: Scan Indicated on CBC? Y/N YES- FLAGS NOTED
[2017-05-15 07:06] LABS: Differential Comment SCANNED
--- NOTE | 2017-05-15 07:58 | PCM.PN.OB ---
Subjective: pt seen at bedside, doing well. Denies GONZALEZ, Blurry vision. - Physical Exam General: Alert, Oriented x3 Abdomen: Soft, Non Tender, - - fundus firm. incision closed and dry. Extremities: No Calf Tenderness, - - +2 DTR Neurological: Cranial nerves II-XII grossly intact Vital Signs Temp Pulse Resp BP Pulse Ox 97.9 F 68 16 117/77 98 05/15/17 03:40 05/15/17 03:40 05/15/17 03:40 05/15/17 03:40 05/15/17 03:40 Oxygen Delivery Method Room Air Weight: 63.7 kg Body Mass Index (BMI) 24.8 Intake and Output for Last 24 Hours 05/13/17 05/14/17 05/15/17 23:59 23:59 23:59 Intake Total 143 / 143 2399 / 2399 Output Total 5150 / 5150 Balance 143 / -257 -2751 / -2751 Laboratory Tests Past 24 Hrs 05/15/17 05/15/17 05:45 05:45 WBC 9.0 RBC 4.64 Hgb 10.8 L Hct 36.3 L MCV 78.2 L MCH 23.3 L MCHC 29.8 L RDW 21.3 H RDW Differential 56.4 H Plt Count 260 MPV 9.0 Differential Comment SCANNED Total Bilirubin 0.30 Direct Bilirubin 0.05 AST 34 ALT 56 Alkaline Phosphatase 109 Total Protein 6.6 Albumin 2.8 L Globulin 3.8 Assessment/Plan HD#2 Readmitted for Post preeclampsia s/p Magnesium x 24hrs 1) VS stable , pt is asymptomatic. 2) LFTs normalized 3) BP check in office at [facility] 05/17/17 at 9am 4) dc home
--- NOTE | 2017-05-15 08:03 | PN.OBGYN_ITS ---
Subjective: pt seen at bedside, doing well. Denies GONZALEZ, Blurry vision. - Physical Exam General: Alert, Oriented x3 Abdomen: Soft, Non Tender, - - fundus firm. incision closed and dry. Extremities: No Calf Tenderness, - - +2 DTR Neurological: Cranial nerves II-XII grossly intact Vital Signs Temp Pulse Resp BP Pulse Ox 97.9 F 68 16 117/77 98 05/15/17 03:40 05/15/17 03:40 05/15/17 03:40 05/15/17 03:40 05/15/17 03:40 Oxygen Delivery Method Room Air Weight: 63.7 kg Body Mass Index (BMI) 24.8 Intake and Output for Last 24 Hours 05/13/17 05/14/17 05/15/17 23:59 23:59 23:59 Intake Total 143 / 143 2399 / 2399 Output Total 5150 / 5150 Balance 143 / -257 -2751 / -2751 Laboratory Tests Past 24 Hrs 05/15/17 05/15/17 05:45 05:45 WBC 9.0 RBC 4.64 Hgb 10.8 L Hct 36.3 L MCV 78.2 L MCH 23.3 L MCHC 29.8 L RDW 21.3 H RDW Differential 56.4 H Plt Count 260 MPV 9.0 Differential Comment SCANNED Total Bilirubin 0.30 Direct Bilirubin 0.05 AST 34 ALT 56 Alkaline Phosphatase 109 Total Protein 6.6 Albumin 2.8 L Globulin 3.8 Assessment/Plan HD#2 Readmitted for Post preeclampsia s/p Magnesium x 24hrs 1) VS stable , pt is asymptomatic. 2) LFTs normalized 3) BP check in office at [facility] 05/17/17 at 9am 4) dc home
[2017-05-15 08:04] VITALS: BP 111/66; PULSE 51; RESP 20; TEMP 36.3; O2SAT 99
--- NOTE | 2017-05-15 08:06 | PCM.DC ---
- Discharge Diagnoses Current Active Problems: post preeclampsia Reason(s) for Visit for Discharge Instructions: Post preeclampsia You will use the following diet at home:: No restrictions Your food should be the consistency of: Regular Discharge Activity: Return to Normal Activity, May not drive while taking narcotic pain medications., May Shower May resume sexual activity in: 4-6 weeks Lifting Restrictions: 20 Call your doctor if your incision/area has: Continuous Slow Oozing, Sudden Increased Bleeding, Increased Pain/ Swelling, Increased Redness, Foul Smelling Discharge, Swelling at the incision site Call your doctor if you observe: Fever of 101 or Higher, Shortness of breath, Fainting spells, Chest pain, Uncontrolled pain, - - headaches not relieved by tylenol, changes in vision or Right upper quadrant or epigastric pain Cleanse incision/area with: Soap & Water Allergies/Adverse Reactions: Allergies No Known Allergies Allergy (Verified 05/13/17 19:19) Medications to take at Discharge SimETHICONE [Mylicon] 80 mg PO PCHS PRN tablet 05/15/17 Primary Care Physician: Miquel Weller MD [Primary Care Provider] - Please Follow Up With: Bren Soto MD When: saturday05/17/17 at 9am for BP check with nurse
== END 2017-05-15 09:30 | disposition home or self-care (01) | DRG 776 ==
LOC: ED 21:00 → WP 22:22
PROVIDERS: Obstetrics & Gynecology; Admitting Provider Obstetrics & Gynecology; Emergency Provider Emergency Medicine; Family Provider Family Medicine; PCP Family Medicine; Visit Provider Obstetrics & Gynecology
DX: O14.95 Unspecified pre-eclampsia, complicating the puerperium (principal)
CPT/HCPCS: 80053; 80076; 81001; 84550; 85025; 85027; 85610; 85730; 93005; 99285; J7120; A4216

== ENCOUNTER 2017-05-15 22:05 | Observation (INO) | payer MEDICARE, MEDICAID, SELFPAY ==
[2017-05-15 20:06] VITALS: BMI 25.4
[2017-05-15] MEDS: Ketorolac 30 MG/ML Syringe IV (20:19)
--- NOTE | 2017-05-15 20:36 | CT_ITS ---
CT Head or Brain W/O Contrast INDICATION: HEADACHE POST- PREECLAMPSIA COMPARISON: None TECHNIQUE: Noncontrast axial CT examination of the brain. Radiation dose optimization applied. FINDINGS: The ventricular system is normal in size and symmetric. The cortical sulci, sylvian fissures, and basal cisterns are well seen. The cash-white matter junction is distinct. There is no evidence of acute intracranial hemorrhage, mass effect, midline shift, or abnormal extra-axial collection. The calvarium is intact and the visualized paranasal sinuses and mastoid air cells are clear. CT/Brain/Head without Contrast IMPRESSION: No evidence of acute intracranial abnormality by noncontrast CT. at 2992 Reported and signed by: Elena Abbott MD Electronically Signed: Elena Abbott MD at 20:16 EST Tel , Service support ,
--- NOTE | 2017-05-15 20:39 | PCM.HP.BLA ---
History and Physical Date of Admission: 05/15/17 26-year-old female status post repeat on 05/08/2017 readmitted on 05/13/2017 for preeclampsia and severe headache. She was treated with IV magnesium for 24 hours. She had resolution of her hypertension without going medication use. She was headache free today and was sent home. However she admits that she was not walking around in the hallways are doing much activity while she was here. Today she was at home and tonight he started having severe frontal headache. She has some pain in her mid upper back as well she states is not worse with standing up. Laying still does not make it better. Any visual changes. She denies that light or sound make the headache worse. Having these problems with her previous pregnancies. This an update her H&P that was done on 05/13/2017 Systems: General: Patient denies any fevers or chills GI: Positive flatus, no bowel movement for 2 days. No nausea or vomiting. Tolerating regular diet today : Average lochia, no dysuria Musculoskeletal: Some leg edema, mid to upper back pain Physical exam Neuro: Patient is awake, appears uncomfortable, rocking slightly and holding her head, 3+ DTRs, 1 beat of clonus Remedies: 1+ pedal edema Skin: Warm, dry, intact Incision:, Dry, intact Abdomen: Soft, nondistended, appropriate tenderness, fundus is firm, appropriately tender Labs from prior admission and vital signs reviewed Assessment and plan 26-year-old postoperative day #7 status post repeat section Charge home today after readmission for preeclampsia, now with severe headache Patient denied taking any pain medications or even Tylenol at home today. Will treat for the headache. Will order a CT since this is her second admission for the same issue. Will monitor blood pressure. Blood pressure was normal earlier today suspect that increased blood pressure tonight is most likely due to stress and pain.
[2017-05-15] MEDS: HYDROmorphone 1 MG/ML Syringe IV (20:44)
[2017-05-15 20:49] LABS: Hematocrit 36.8 % (37-47); Hemoglobin 11.1 g/dl (12.0-15.0); Mean Corp Hgb Conc 30.2 g/gl (32-36); Mean Corpuscular Hgb 23.9 pg (27.0-32.0); Mean Corpuscular Volume 79.3 fL (81-99); Mean Platelet Vol. 9.3 fl (6.2-12.0); Partial Thromboplast Time 31.9 Seconds (24.1-36.2); Platelet Count 257 K/mm3 (150-450); RBC Distribution Width CV 21.3 % (11.6-14.6); RBC Distribution Width SD 57.9 fl (35.1-43.9); Red Blood Count 4.64 M/mm3 (4.2-5.4); White Blood Count 10.1 K/mm3 (4.4-11.0)
[2017-05-15 20:53] LABS: AST(SGOT) 26 U/L (15-37); Alanine Aminotransfer ALT/SGPT 51 U/L (13-56); Creatinine, Serum 0.77 mg/dL (0.55-1.02); EST Glomerular Filtration Rate 96 mL/min (>60); Est Glom Filt Rate - Afr Amer 116 mL/min (>60); Estimated Creatinine Clearance 91.59 ml/min; Uric Acid 5.3 mg/dL (2.6-6.0)
[2017-05-15 20:57] LABS: Scan Indicated on CBC? Y/N YES- FLAGS NOTED
[2017-05-15 21:31] LABS: Differential Comment SCANNED
--- NOTE | 2017-05-15 22:00 | PCM.PN.OB ---
Subjective: GONZALEZ now 05/04. No N/V - Physical Exam General: - - sleeping, awakens easily Weight: 65.317 kg Body Mass Index (BMI) 25.4 Laboratory Tests Past 24 Hrs 05/15/17 05/15/17 05/15/17 20:25 20:25 20:25 WBC 10.1 RBC 4.64 Hgb 11.1 L Hct 36.8 L MCV 79.3 L MCH 23.9 L MCHC 30.2 L RDW 21.3 H RDW Differential 57.9 H Plt Count 257 MPV 9.3 Differential Comment SCANNED PT 13.0 INR 1.0 APTT 31.9 Creatinine 0.77 Estim Creat Clear Calc 91.59 Est GFR (MDRD) Af Amer 116 Est GFR (MDRD) Non-Af 96 Uric Acid 5.3 AST 26 ALT 51 Assessment/Plan readmitted for GONZALEZ, PP preeclampsia start procardia monitor BP CT of brain neg. for acute issue
[2017-05-15 23:22] VITALS: BP 152/86; PULSE 57; RESP 14; TEMP 36; O2SAT 99
[2017-05-15 23:24] VITALS: BMI 23.8
[2017-05-15 23:31] VITALS: BMI 23.8
--- NOTE | 2017-05-16 00:15 | NURSING ---
Pt requested pain meds for headache. After obtaining meds from the [facility] and returning to pt's room, pt found sleeping comfortably in bed. No distress noted. Will continue to monitor and medicate for pain as needed.
[2017-05-16 04:07] VITALS: BP 131/79; PULSE 53; RESP 16; TEMP 36.9; O2SAT 100
[2017-05-16] MEDS: Acetaminophen 325 MG Tablet 650 MG PO (04:08)
[2017-05-16] MEDS: oxyCODONE 5 MG Tablet PO ×2 (04:09→13:58)
[2017-05-16] MEDS: NIFEdipine 10 MG Capsule PO ×2 (05:38→14:27)
--- NOTE | 2017-05-16 07:16 | ECHOD_ITS ---
Reason For Study: HYPERTENSION Procedure This was a 2D Doppler, Color Flow transthoracic echocardiogram. Exam performed portable in patient room. Left Ventricle Normal size and thickness. The estimated ejection fraction is 65 %. Normal diastology for age. No regional wall motion abnormalities noted. Right Ventricle Normal size and thickness. Normal systolic function. Atria Normal left atrium. Normal right atrium. Normal atrial septum. Mitral Valve The mitral valve is structurally normal. No prolapse or stenosis seen. Tricuspid Valve Normal tricuspid valve. Trivial tricuspid valve insufficiency. Right ventricular systolic pressure estimated to be 20 mmHg. Aortic Valve Normal aortic valve. Trisinus/trileaflet aortic valve. Pulmonic Valve Normal pulmonic valve. Great Vessels Normal aortic root. Pericardium/Pleural No pericardial effusion. MMode/2D Measurements & Calculations LVIDd: 4.7 cm IVSd: 0.68 cm Ao root diam: 2.9 cm LVIDs: 2.7 cm LVPWd: 0.75 cm LA dimension: 2.9 cm RVDd: 3.0 cm FS: 41.5 % LAV(MOD-bp): 38.4 ml LVAd ap4: 30.6 cm2 SV(MOD-sp4): 66.7 ml LAV(MOD-bp) Indexed: 23.5 ml/m2 EDV(MOD-sp4): 91.1 ml LAV(MOD-sp2): 30.9 ml EDV(sp4-el): 94.3 ml LAV(MOD-sp4): 42.4 ml LVAs ap4: 14.1 cm2 ESV(MOD-sp4): 24.4 ml ESV(sp4-el): 24.9 ml EF(MOD-sp4): 73.3 % EF(sp4-el): 73.6 % SV(sp4-el): 69.4 ml LA A4 area: 16.5 cm2 RA A4 area: 13.5 cm2 Doppler Measurements & Calculations MV E max sandy: 128.0 cm/sec Ao V2 max: 147.5 cm/sec LV V1 max: 106.4 cm/sec MV A max sandy: 54.4 cm/sec Ao max P.7 mmHg LV V1 max P.5 mmHg MV E/A: 2.4 PA V2 max: 100.9 cm/sec PI end-d sandy: 93.6 cm/sec TR max sandy: 208.5 cm/sec TR max P.5 mmHg Interpretation Summary The estimated ejection fraction is 65 %. Normal diastology for age. Trivial tricuspid valve insufficiency. Right ventricular systolic pressure estimated to be 20 mmHg. There is no comparison study available. This was essentially a normal study. Ordering Physician: Apolonia Aldridge Referring Physician: LUCHO NIXON Performed By: Hyacinth Luna RDCS, RVT
[2017-05-16] MEDS: Senna/Docusate Sodium 1 Tablet PO (09:01)
[2017-05-16] MEDS: Enoxaparin 40 MG/0.4 ML Syringe SC (09:02)
[2017-05-16 09:08] VITALS: BP 110/58; PULSE 58; RESP 18; TEMP 36.3; O2SAT 98
[2017-05-16 14:28] VITALS: BP 118/87; PULSE 106; RESP 18; TEMP 37.1; O2SAT 98
--- NOTE | 2017-05-16 18:11 | DCINST_ITS ---
Discharge Diet: No Restrictions Discharge Activity: Return to Normal Activity, May Not Drive - for 2 weeks, May not drive while taking narcotic pain medications., May Shower, May Take a Tub Bath - in 7 days., - - Call or return for headache that is severe, persistent or not relieved with pain medication. Call or return for seizure activity, severe pain under your ribs not relieved with pain medications or persistent visual changes. May resume sexual activity in: 4-6 weeks Lifting Restrictions: 20 pounds Additional Activity Instructions:: Nothing in the vagina for 4-6 weeks. You may return to work/school in 6 weeks. Call your doctor if your incision/area has: Continuous Slow Oozing, Sudden Increased Bleeding, Increased Pain/ Swelling, Increased Redness, Foul Smelling Discharge Call your doctor if you observe: Fever of 101 or Higher, Using more than one pad per hour - for 2 hours Suture Line Care: Avoid Pulling/Pushing, Avoid Pinching/Bending Cleanse incision/area with: Keep Dressing Clean & Dry Additional Instructions: If you experience any of the following, contact your healthcare provider. * Bleeding that soaks a pad every hour for 2 hours * Fever 100.4 or higher * Unrelieved incision or abdominal pain * Swelling, redness, discharge or bleeding from your incision or episiotomy site * Your incision begins to separate * Problems urinating (including inability to urinate or burning while urinating) . * Visual changes * Severe headache * Flu-like symptoms * Pain or redness in one of both of your breasts * Pain, warmth, tenderness or swelling in your legs, especially the calf area * Frequent nausea and vomiting * Symptoms of depression or anxiety If you experience any of the following, call 911 or go to the nearest Emergency Room. * Chest pain * Problems breathing * Seizure activity * Partial or complete paralysis of a body part, slurred speech, weakness or drooping of the face, or a sudden inability to walk or hold your balance Allergies/Adverse Reactions: Allergies No Known Allergies Allergy (Verified 05/15/17 23:27) Medications to take at Discharge Ibuprofen [Motrin] 600 mg PO Q6H PRN #60 tab 05/16/17 NIFEdipine [Procardia] 10 mg PO TID #60 cap 05/16/17 Oxycodone HCl/Acetaminophen [Percocet 5/325] 1 tab PO Q6H PRN PRN 5 Days #10 tab 05/16/17 The following prescriptions were given: Oxycodone HCl/Acetaminophen [Percocet 5/325] 1 tab PO Q6H PRN PRN 5 Days #10 tab PRN Reason: Severe Pain (-01/01) Ibuprofen [Motrin] 600 mg PO Q6H PRN #60 tab PRN Reason: Pain NIFEdipine [Procardia] 10 mg PO TID #60 cap Follow-Up: Call to make an appointment with your doctor for an incision check in 1-2 weeks. You will also need a 6 week post- follow up appointment. Please Follow Up With: Bren Soto MD - [phone] When: 3-5 days or as needed Primary Care Physician: Miquel Weller MD [Primary Care Provider] -
--- NOTE | 2017-05-16 18:11 | PCM.PN.OB ---
Subjective: Denies GONZALEZ or visual changes. Took 2 doses of oral pain meds today. Ambulated without SOB/lightheadedness/CP. Average lochia. + Flatus. Stefano. regular diet. ready to go home. - Physical Exam General: Alert, Cooperative, No apparent distress Abdomen: Soft, Non-Distended, Tender - minimally Extremities: Edema - trace, - - 2+ DTRs, no clonus Skin: Incision - clean, dry and intact Vital Signs Temp Pulse Resp BP Pulse Ox 98.8 F 106 H 18 118/87 H 98 05/16/17 14:28 05/16/17 14:28 05/16/17 14:28 05/16/17 14:28 05/16/17 14:28 Oxygen Delivery Method Room Air Weight: 60.9 kg Body Mass Index (BMI) 23.8 Intake and Output for Last 24 Hours 05/14/17 05/15/17 05/16/17 23:59 23:59 23:59 Intake Total 1460 / 1460 Output Total 700 / 700 Balance 760 / 760 Laboratory Tests Past 24 Hrs 05/15/17 05/15/17 05/15/17 20:25 20:25 20:25 WBC 10.1 RBC 4.64 Hgb 11.1 L Hct 36.8 L MCV 79.3 L MCH 23.9 L MCHC 30.2 L RDW 21.3 H RDW Differential 57.9 H Plt Count 257 MPV 9.3 Differential Comment SCANNED PT 13.0 INR 1.0 APTT 31.9 Creatinine 0.77 Estim Creat Clear Calc 91.59 Est GFR (MDRD) Af Amer 116 Est GFR (MDRD) Non-Af 96 Uric Acid 5.3 AST 26 ALT 51 Assessment/Plan HD#2 s/p readmission for PP preeclampsia w/ severe GONZALEZ BP normal on procardia. Normal cardiac echo and CT of brain home on procardia, if lightheaded, dizzy call office, may need to wean down dose quickly or can skip dose d/w her f/u in 3-5 days or prn pt comfortable w/ plan
== END 2017-05-16 18:40 | disposition home or self-care (01) ==
LOC: WPOUT 22:38 → MS3 22:38
PROVIDERS: Admitting Provider Obstetrics & Gynecology; Family Provider Family Medicine; PCP Family Medicine; Visit Provider Obstetrics & Gynecology
DX: O14.95 Unspecified pre-eclampsia, complicating the puerperium (principal); I07.1 Rheumatic tricuspid insufficiency
CPT/HCPCS: 70450; 82565; 84450; 84460; 84550; 85027; 85610; 85730; 93306; 96372; 96374; 96375; 99218; A4216; G0378; G0379

== ENCOUNTER 2017-07-18 06:48 | Emergency (ER) | payer MEDICARE, SELFPAY ==
[2017-07-18 06:49] VITALS: BP 109/78; PULSE 72; RESP 18; TEMP 36.9; O2SAT 99; BMI 21.2
--- NOTE | 2017-07-18 07:25 | ED.VISSUMM ---
- ER Visit Summary Date of Service: 07/18/17 Chief Complaint: Abdominal pain History of Present Illness: The patient is a [address] Miquel Weller. She reports that she woke up at 6:00 this morning and had an episode of dull pain just above her umbilicus the last approximately 1 minute. The pain is 7-10 at worst and she is pain-free currently. She reports it was worsened by leaning over. It was relieved by nothing. She does report there was a bulge in this area. She denies any associated nausea, vomiting, diarrhea, melena, or hematochezia. No dysuria or frequency. Patient does report that she has a history of chronic constipation for which she is supposed to take MiraLAX. She cannot remember the last time she took her MiraLAX. She did have a small bowel movement yesterday. Physical Examination: Vitals: Stable. Afebrile. General: Well-nourished and well-developed. Head: Normocephalic atraumatic. Neck: Supple, no lymphadenopathy. No JVD. Nontender. Cardiovascular: Regular rate and rhythm. No murmurs. Respiratory: No respiratory distress. Clear to auscultation bilaterally. Abdominal: Ventral hernia above her umbilicus that has no hernia contents at this time. When she sits forward there is palpable intestine, but it reduces spontaneously. Soft, nontender, nondistended, normal bowel sounds. No guarding, rebound, or peritoneal signs. Back: Nontender. Extremities: Nontender, no edema. Skin: Normal color, no rash. Neurologic: Alert and oriented ?3. Cranial nerves II through XII are intact. Normal strength and sensation. Psych: Normal affect. Emergency Department Course and Treatment: Patient was reassured. She refused pain medications. Treatment Plan: Patient will be discharged instructions to follow-up Dr. Kohli in 1-2 weeks for another exam. Return to the emergency department if she is unable to reduce the hernia. Take her MiraLAX as prescribed. Disposition: To home in improved and stable condition. Impression: 1. Ventral hernia. This note was generated with [employer] software. It may contain incorrect words, spelling, and punctuation that were not noted in review of the chart prior to signing ED Disposition - Plan for ED Patient: Chief Complaint: Abd Pain Instructions: ED Hernia Inguinal Referrals: Froy Kohli MD [STAFF PHYSICIAN] - 1-2 Weeks
== END 2017-07-18 07:48 | disposition home or self-care (01) ==
LOC: ED 07:28
PROVIDERS: Emergency Provider Emergency Medicine; Family Provider Family Medicine; PCP Family Medicine
DX: K43.9 Ventral hernia without obstruction or gangrene (principal); K59.00 Constipation, unspecified
CPT/HCPCS: 99282

== ENCOUNTER → 2018-06-20 09:54 | Outpatient (CLI) | payer MEDICAID, MEDICARE, SELFPAY ==
[2018-06-20 09:54] VITALS: BMI 24.6
[2018-06-20 13:25] LABS: Rubella IgG 11.6 IU/mL
[2018-06-23 13:30] LABS: Hep B Surface Antibodies Reactive (.); Rubeola IgG Ab < 25.0 AU/mL (Immune >29.9); V-Zoster Virus Acute IgM < 0.91 index (0.00-0.90)
== END ==
PROVIDERS: Family Provider Family Medicine; PCP Family Medicine; Referring Provider Family Medicine; Visit Provider Nurse Practitioner Adult Health
DX: Z01.84 Encounter for antibody response examination (principal)
CPT/HCPCS: 36415; 86706; 86762; 86765; 86787

== ENCOUNTER 2018-08-19 19:05 | Emergency (ER) | payer MEDICARE, MEDICAID, SELFPAY ==
[2018-06-20 09:54] VITALS: BMI 24.6
[2018-08-19 19:07] VITALS: BP 99/67; PULSE 63; PULSE 70; RESP 14; RESP 16; TEMP 36.4; O2SAT 97; O2SAT 99; BMI 20.3
--- NOTE | 2018-08-19 20:17 | ED.DCSUM_ITS ---
- ER Visit Summary Date of Service: 08/19/18 Chief Complaint: Intermittent right flank pain since this morning History of Present Illness: The patient is a 27 F no significant past medical history other than anxiety depression, asthma and chronic constipation. Prior C-sections. No prior kidney stone. Patient states since this morning she is had intermittent right flank pain. At times radiating her groin. Currently pain-free. She denies any nausea, vomiting or diarrhea. Mild chills. No dysuria. Mild urinary frequency. No vaginal bleeding or discharge. Last menstrual period 08/01/2018. She had pain like this before but is never had it evaluated. Physical Examination: Well-appearing young female vital signs are stable she is afebrile. She does not look septic or toxic. She is in no distress. HEENT exam normal. Neck nontender no lymphadenopathy. Lungs clear to auscultation bilaterally. Heart regular rhythm no murmur. Rate about 70. Abdomen is soft and nontender. Normal bowel sounds. No peritoneal signs. Both the right upper right lower quadrants are completely nontender. There is no Sahu sign. No McBurney's point tenderness. No signs of obstruction. No distention. Abdomen is soft. No hernias or masses. Back exam nontender. No CVA tenderness or flank tenderness. No signs of trauma. Patient is moving all 4 extremities. Neurovascular intact. Neurologically she is awake alert with no focal deficits. Test Results: CBC normal white count of 6. Chemistries normal normal creatinine and gap. UA normal no signs of infection serum test negative. Emergency Department Course and Treatment: Flank pain has a benign exam. Currently does not need anything for pain is had no nausea. Repeat exam at 2144 she is doing well. Her abdomen is completely nontender. Currently she has no pain. At this time I do not think she needs any further work-up nor any imaging. She and I discussed all the test results. She will follow-up as an outpatient. Treatment Plan: Follow-up with your doctor return if feeling worse. Disposition: Discharge Impression: Acute right flank pain of uncertain etiology This note was generated with [employer] software. It may contain incorrect words, spelling, and punctuation that were not noted in review of the chart prior to signing ED Disposition - Plan for ED Patient: Referrals: Miquel Weller MD [Primary Care Provider] -
[2018-08-19 20:52] LABS: Bacteria 0 SEEN /hpf (None Seen)
[2018-08-19 20:54] LABS: Color, Urine Yellow (Yellow); Glucose, Dipstick Normal (Normal); Ketone-Dipstick Negative (Negative); Leukocyte Esterase-Dipstick 25 /ul (Negative); Nitrite-Dipstick Negative (Negative); Occult Blood-Urine 10 /ul (Negative); Protein-Dipstick Negative (Negative); Urine Bilirubin Dipstick Negative (Negative); Urine Clarity Clear (Clear); Urine Urobilinogen Normal (Normal)
[2018-08-19 21:12] LABS: Absolute Lymphocyte Count 2.95 X10^3/ul (0.83-4.51); Absolute Neutrophil Count 2.6 X10^3/uL (2.0-7.7); Basophil# 0.02 X10^3/uL; Basophil% 0.3 % (0-1); Eosinophil# 0.06 X10^3/uL; Hematocrit 38.5 % (37-47); Hemoglobin 12.4 g/dl (12.0-15.0); Lymphocyte # 2.95 X10^3/ul (4.0); Lymphocyte % 47.4 % (19-41); Mean Corp Hgb Conc 32.2 g/gl (32-36); Mean Corpuscular Hgb 27.1 pg (27.0-32.0); Mean Corpuscular Volume 84.2 fL (81-99); Mean Platelet Vol. 9.8 fl (6.2-12.0); Monocyte# 0.64 X10^3/uL; Monocyte% 10.3 % (0-10); Neutrophil # 2.55 X10^3/uL (2.7-7.7); Platelet Count 244 K/mm3 (150-450); RBC Distribution Width CV 13.9 % (11.6-14.6); RBC Distribution Width SD 42.4 fl (35.1-43.9); Red Blood Count 4.57 M/mm3 (4.2-5.4); White Blood Count 6.2 K/mm3 (4.4-11.0)
[2018-08-19 21:14] LABS: POSITIVE COUNT NO; POSITIVE DIFFERENTIAL NO; POSITIVE MORPHOLOGY NO
[2018-08-19 21:15] LABS: Red Blood Cells-Urine 0-5 SEEN /hpf (0-5); White Blood Cells 0-5 SEEN /hpf (0-5)
[2018-08-19 21:18] LABS: Mucous, Urine 2+ /hpf (<or=2+); Squamous Epithelial Cells - UA 0-5 SEEN /hpf (5-10)
[2018-08-19 21:25] LABS: Internal QC Validated? YES +Cl - CLEAR BKGD; Pregnancy, Serum, hCG Quali. NEGATIVE Negative
[2018-08-19 21:31] LABS: Anion Gap 5 (5-15); BUN 12 mg/dL (7-18); BUN/Creat Ratio 15.7 RATIO (10-20); Chloride 108 mmol/L (98-107); Creatinine, Serum 0.77 mg/dL (0.55-1.02); EST Glomerular Filtration Rate 95 mL/min (>60); Est Glom Filt Rate - Afr Amer 116 mL/min (>60); Estimated Creatinine Clearance 90.26 ml/min; Glucose 86 mg/dL (74-106); Sodium Level 140 mmol/L (136-145)
--- NOTE | 2018-08-19 21:45 | ED.DEP ---
ED Disposition - Plan for ED Patient: Disposition: Home or Assisted Living Instructions: ED Flank Pain Uncertain Cause Referrals: Miquel Weller MD [Primary Care Provider] - 3-5 Days if not improving Additional Instructions: Tylenol or Motrin for pain. Follow-up with your doctor if not improving. Return if you are feeling worse.
[2018-08-19 21:51] VITALS: BP 107/76; PULSE 70; RESP 14; O2SAT 98
== END 2018-08-19 21:51 | disposition home or self-care (01) ==
PROVIDERS: Emergency Provider Emergency Medicine; Family Provider Family Medicine; PCP Family Medicine
DX: R10.9 Unspecified abdominal pain (principal); J45.909 Unspecified asthma, uncomplicated; F41.9 Anxiety disorder, unspecified; F32.9 Major depressive disorder, single episode, unspecified; Z79.899 Other long term (current) drug therapy
CPT/HCPCS: 80048; 81001; 84703; 85025; 99283; A4216

== ENCOUNTER → 2018-12-16 | Outpatient (CLI) | payer MEDICARE, MEDICAID, SELFPAY ==
[2018-12-16 13:41] VITALS: BMI 20.3
--- NOTE | 2018-12-16 13:50 | RAD_ITS ---
STUDY: X-RAY - LEFT WRIST REASON FOR EXAM: [place] a shooting pain in wrist while cleaning. TECHNIQUE: 3 view(s) of the wrist were obtained. COMPARISON: None. FINDINGS: Normal visualized distal radius and ulna. Normal radiocarpal articulation. Normal distal radioulnar articulation. Normal carpal bones. Normal carpal articulations. Normal carpometacarpal articulation of the thumb. Normal second through fifth carpometacarpal articulations. Normal visualized metacarpal bones. The soft tissue structures are unremarkable. RAD/Wrist min 3 Views IMPRESSION: Normal x-ray examination of the left wrist. Electronically Signed: Venu Souza MD at 14:39 EDT Tel , Service support ,
== END | disposition home or self-care (01) ==
LOC: HPRAD 13:50
PROVIDERS: Family Provider Family Medicine; PCP Family Medicine; Referring Provider Orthopaedic Surgery; Visit Provider Orthopaedic Surgery
DX: R20.0 Anesthesia of skin (principal); R20.2 Paresthesia of skin
CPT/HCPCS: 73110

== ENCOUNTER → 2018-12-23 | Outpatient (CLI) | payer MEDICARE, MEDICAID, SELFPAY ==
[2018-12-16 13:41] VITALS: BMI 20.3
--- NOTE | 2018-12-23 10:21 | NEURO_ITS ---
NCS and/or EMG Patient Report Ordering Doctor: Roma Salas DATE OF SERVICE: 12/23/18 This is a right upper extremity partial EMG and a bilateral upper extremity nerve conduction study performed on this 28-year-old female with a 2-year history of abnormal sensations in her first 4 digits bilaterally worse on the left side. There is no history of neck pain, she is healthy otherwise although she does have a history of asthma, anxiety, depression and chronic constipation. Bilateral upper extremity nerve conduction study was performed demonstrating very mild prolongation of the median motor distal latencies as well as mild prolongation of the median sensory distal latency with preservation of amplitudes and conduction velocities. The ulnar motor and sensory and radial sensory responses bilaterally are preserved. The median and ulnar F-wave latencies bilaterally are preserved. Right upper extremity needle electromyography was attempted however the patient only tolerated evaluation of the abductor pollicis brevis muscle. This muscle demonstrated normal insertional activity with absence of pathologic spontaneous activity. Motor unit potential recruitment pattern and amplitude was normal. The patient deferred further evaluation by needle electromyography. Impression: Very mild carpal tunnel syndrome bilaterally although this does not appear to be clinically significant. Based on limited EMG, which is inconclusive this does not appear to represent radiculopathy or severe carpal tunnel syndrome. Dictated using [employer] software, not proofread
== END | disposition home or self-care (01) ==
LOC: PSN 06:58
PROVIDERS: Family Provider Family Medicine; PCP Family Medicine; Referring Provider Orthopaedic Surgery; Visit Provider Orthopaedic Surgery
DX: G56.22 Lesion of ulnar nerve, left upper limb (principal)
CPT/HCPCS: 95885; 95912

== ENCOUNTER → 2019-04-17 15:13 | Outpatient (CLI) | payer MEDICARE, MEDICAID, SELFPAY ==
[2018-12-16 13:41] VITALS: BMI 20.3
[2019-04-17 17:49] LABS: Absolute Lymphocyte Count 2.93 X10^3/uL (0.83-4.51); Absolute Neutrophil Count 4.5 X10^3/uL (2.0-7.7); Basophil# 0.03 X10^3/uL; Basophil% 0.4 % (0-1); Eosinophils% 1.2 % (0-5); Hematocrit 40.2 % (37-47); Hemoglobin 12.5 g/dL (12.0-15.0); Lymphocyte # 2.93 X10^3/ul (4.0); Mean Corp Hgb Conc 31.1 g/dL (32-36); Mean Corpuscular Hgb 27.2 pg (27.0-32.0); Mean Corpuscular Volume 87.4 fL (81-99); Mean Platelet Vol. 10.5 fl (6.2-12.0); Monocyte# 0.83 X10^3/uL; Monocyte% 9.9 % (0-10); NRBC Flagged by Analyzer 0 % (0-5); Neutrophil # 4.48 X10^3/uL (2.7-7.7); Neutrophil % 53.4 % (47-70); Platelet Count 246 K/mm3 (150-450); RBC Distribution Width SD 44.9 fl (35.1-43.9); White Blood Count 8.4 K/mm3 (4.4-11.0)
[2019-04-17 18:36] LABS: ALB/GLOB Ratio 1.2 RATIO (0.9-2.4); AST(SGOT) 14 U/L (15-37); Alanine Aminotransfer ALT/SGPT 20 U/L (13-56); Albumin, Serum 4.2 g/dL (3.2-5.0); Alkaline Phosphatase 54 U/L (45-117); Anion Gap 9 (5-15); BUN 15 mg/dL (7-18); BUN/Creat Ratio 18.9 RATIO (10-20); Calcium,Total 9.3 mg/dL (8.5-10.1); Chloride 105 mmol/L (98-107); Creatinine, Serum 0.79 mg/dL (0.55-1.02); EST Glomerular Filtration Rate 91 mL/min (>60); Est Glom Filt Rate - Afr Amer 110 mL/min (>60); Globulin 3.5 g/dL (2.2-4.2); Glucose 85 mg/dL (74-106); Potassium 4.4 mmol/L (3.5-5.1); Protein, Total 7.7 g/dL (6.4-8.2); Sodium Level 139 mmol/L (136-145)
== END ==
PROVIDERS: PCP Family Medicine; Referring Provider Family Medicine; Visit Provider Family Medicine
DX: K59.09 Other constipation (principal); F32.9 Major depressive disorder, single episode, unspecified
CPT/HCPCS: 36415; 80053; 84443; 85025

== ENCOUNTER 2020-05-01 16:33 | Emergency (ER) | payer MEDICARE, MEDICAID, SELFPAY ==
[2018-12-16 13:41] VITALS: BMI 20.3
[2020-05-01 16:35] VITALS: BP 102/56; PULSE 82; RESP 16; TEMP 36.7; O2SAT 100; BMI 20.9
[2020-05-01 16:52] VITALS: BP 103/71; PULSE 68; RESP 16; O2SAT 100
--- NOTE | 2020-05-01 16:52 | RAD_ITS ---
STUDY: X-RAY CHEST REASON FOR EXAM: Female, 29 years old. c/o N/T to lips, tongue and left side of face. Sx began 2/2 TECHNIQUE: AP COMPARISON: None. FINDINGS: EKG leads project over the chest. The lungs are clear and expanded. There is no demonstrated pleural abnormality. Normal size heart. Normal mediastinum and meaghan. Normal visualized pulmonary arteries. Normal visualized aortic arch and descending thoracic aorta. There is a levoscoliosis of the thoracic spine. Normal visualized ribs, clavicles, and shoulders. There is no demonstrated abnormality of the visualized soft tissue structures of the upper abdomen. RAD/Chest 1 View IMPRESSION: Nonacute portable x-ray examination of the chest. Electronically Signed: Sheldon Souza MD (Brooks) at 17:45 EST , Service support ,
--- NOTE | 2020-05-01 16:52 | EKG12_ITS ---
Test Reason : NEURO S/SX Blood Pressure : / mmHG Vent. Rate : 072 BPM Atrial Rate : 072 BPM P-R Int : 160 ms QRS Dur : 090 ms QT Int : 382 ms P-R-T Axes : 074 080 084 degrees QTc Int : 418 ms Normal sinus rhythm with sinus arrhythmia Nonspecific T wave abnormality Abnormal ECG Confirmed by JEFF العراقي, KAREN ([id number]), newspaper editor YING HOLLIDAY ([id number]) on 05/03/2020 8:25:29 AM Referred By: ALLEN Confirmed By:KAREN AGUILAR MD
--- NOTE | 2020-05-01 16:52 | CT_ITS ---
We are attempting to reach an attending provider to discuss findings. An addendum with communication details will be sent when the communication is complete. EXAM: CT HEAD WITHOUT INTRAVENOUS CONTRAST CLINICAL INDICATION: Numbness/tingling to mouth and left face x 5 days TECHNIQUE: Multiple axial images were obtained of the head without intravenous contrast. This CT exam was performed using one or more of the following dose reduction techniques: automated exposure control, adjustment of the mA and/or kV according to patient size, and/or use of iterative reconstruction technique. This report was created using [employer] technology. COMPARISON: None. FINDINGS: BRAIN AND EXTRA-AXIAL SPACES: Unremarkable. No intra- or extra-axial hemorrhage. No evidence of acute infarct. No intracranial mass or mass effect. There is preservation of the cash/white matter interface. Posterior fossa structures are unremarkable. Ventricles are appropriate for age. No hydrocephalus. Basal cisterns are patent. BONES/JOINTS: Unremarkable. No discrete lytic or blastic abnormalities. SINUSES: Unremarkable as visualized. Clear. MASTOID AIR CELLS: Unremarkable. Clear. ORBITS: Visualized globes, extraocular muscles, optic nerves and retrobulbar fat appear unremarkable. OTHER FINDINGS: ASPECTS: 10 CT/STROKE Brain/Head without Cont IMPRESSION: No acute findings in the head/brain. Electronically Signed: Sheldon Souza MD (Brooks) at 17:43 EST , Service support ,
--- NOTE | 2020-05-01 16:52 | ED.VIS.GEN ---
History of Present Illness Chief Complaint: Neuro S/Sx Informant: Patient Narrative: 29-year-old female presenting for numbness and tingling in the left side of the tongue left side of the inner mouth left cheek and lips for the last 5 days. She states he saw her PCP who told her to just wait and it would go away. She states that seems to be getting worse. She does not have any slurred speech. She is not drooling. She has no visual complaints. She is not dizzy or lightheaded. She did state that she had some palpitations right before it started but also stated that she has had this her whole life. She has anxiety. - Past Medical History (1) Anxiety Status: Acute (2) Asthma Status: Chronic (3) Depression Status: Chronic Past Medical History - Allergies and Home Meds Allergies/Adverse Reactions: Allergies No Known Allergies Allergy (Verified 05/01/20 16:39) Primary Care Physician: Miquel Santos MD [Primary Care Provider] - Past Medical History: - - Reviewed in problem list Surgical History: noncontributory Lives: Alone Smoking Status: Never smoker Alcohol: None Drugs: None Review of Systems General: Denies: Chills, Fever, Sweats Eyes: Denies: Visual changes - bilaterally, Diplopia ENT: Denies: Rhinorrhea, Sore throat Cardiovascular: Denies: Chest pain, Palpitations Respiratory: Denies: Dyspnea, Cough, Dyspnea on exertion Gastrointestinal: Denies: Abdominal pain, Nausea, Vomiting, Diarrhea, Melena, Hematochezia Genitourinary: Denies: Dysuria, Hematuria, Frequency Musculoskeletal: Denies: Back pain, Extremity Pain Neurological: Reports: Headache, Parasthesia, Numbness Psych: Denies: Depression, Anxiety Physical Exam Vital Signs/Narrative: Vital Signs Temp Pulse Resp BP Pulse Ox 05/01/20 16:35 98.0 F 82 16 102/56 L 100 General: Well nourished, No Acute Distress Head: Normocephalic, Atraumatic Eyes: Perrl, EOMI ENT: Moist mucous membranes, No rhinorrhea Cardiovascular: Regular rate, Regular rhythm Respiratory: No distress, CTA bilaterally Extremities: Nontender, No edema Skin: Normal color, No rash, Cyanosis Neurological: Alert, Oriented x3, - - Slight decrease sensation to the left side of the face but does not involve the forehead. Patient is able to wrinkle her forehead. NIH of 1. Diagnostic/Tx/Re-eval - Rhythm Strip Rhythm Strip: Sinus Tach - EKG Initial EKG Interpretation: Sinus Rhythm, No Acute Injury Pattern - Medical Decision Making 29-year-old female presenting with decreased left-sided facial sensation. She is also complaining that her tongue is a little numb on the left side as well as her lips. On examination she does not have a facial droop. She does have sparing of the forehead. Did not appear to be consistent with Borja's palsy. Stroke work-up was obtained. Patient had EKG which is normal sinus rhythm at 72 bpm without ischemic changes interpreted by myself. Chest x-ray shows no acute process as interpreted by myself and radiology does agree patient's lab work was unremarkable. I did obtain consult from the teleneurologist and he states that she had a slightly abnormal neurologic exam and does not blink her left eye as much her left eye tears a little bit more and her left left eyebrow does not quite go as high as the right eyebrow. He feels this is Borja's palsy. He recommends prednisone 60 mg p.o. x5 days as well as Valtrex 500 twice daily x7 days. patient is counseled to protect her eye at night. If she still has ongoing symptoms he recommends a nonemergent MRI to check for possibly sarcoid. He is fairly certain that this is Borja's palsy. Patient is informed of all this and is discharged home in stable condition. Impression: 1. Borja's palsy ED Disposition - Plan for ED Patient: Disposition: Home or Assisted Living Instructions: ED Borja's Palsy Prescriptions: predniSONE tablet 60 mg PO DAILY #15 tab Transmission Status: Received by [id number] Valacyclovir HCl [Valtrex] 500 mg PO DAILY #14 tab Transmission Status: Received by [id number] Referrals: Miquel Santos MD [Primary Care Provider] -
[2020-05-01 17:06] VITALS: BMI 21.3
[2020-05-01 17:09] LABS: Absolute Lymphocyte Count 2.76 X10^3/uL (0.83-4.51); Absolute Neutrophil Count 3.7 X10^3/uL (2.0-7.7); Basophil# 0.02 X10^3/uL; Basophil% 0.3 % (0-1); Eosinophil# 0.04 X10^3/uL; Eosinophils% 0.6 % (0-5); Hematocrit 38.9 % (37-47); Hemoglobin 12.1 g/dL (12.0-15.0); Lymphocyte # 2.76 X10^3/ul (4.0); Lymphocyte % 38.4 % (19-41); Mean Corp Hgb Conc 31.1 g/dL (32-36); Mean Corpuscular Hgb 27.3 pg (27.0-32.0); Mean Corpuscular Volume 87.8 fL (81-99); Mean Platelet Vol. 9.5 fl (6.2-12.0); Monocyte# 0.63 X10^3/uL; Monocyte% 8.8 % (0-10); NRBC Flagged by Analyzer 0 % (0-5); Neutrophil # 3.72 X10^3/uL (2.7-7.7); Neutrophil % 51.8 % (47-70); Platelet Count 255 K/mm3 (150-450); RBC Distribution Width CV 13.1 % (11.6-14.6); RBC Distribution Width SD 42.6 fl (35.1-43.9); Red Blood Count 4.43 M/mm3 (4.2-5.4); White Blood Count 7.2 K/mm3 (4.4-11.0)
[2020-05-01 17:16] LABS: Bedside Glucose 96 mg/dL (70-110)
--- NOTE | 2020-05-01 17:16 | TELEMED_ITS ---
[facility] has confirmed receipt of a request for visit. This document confirms receipt of the order initiating the consult. To find the results of the consultation, please view the patient's reports for the scanned Telemed Consult.
[2020-05-01 17:19] LABS: International Normalized Ratio 1.1; Prothrombin Time (Protime)PT. 13.7 SECONDS (11.7-14.9)
[2020-05-01 17:27] LABS: Anion Gap 6 (5-15); BUN 13 mg/dL (7-18); BUN/Creat Ratio 14.8 RATIO (10-20); Chloride 108 mmol/L (98-107); Creatinine, Serum 0.88 mg/dL (0.55-1.02); EST Glomerular Filtration Rate 81 mL/min (>60); Est Glom Filt Rate - Afr Amer 98 mL/min (>60); Estimated Creatinine Clearance 78.03 ml/min; Glucose 88 mg/dL (74-106); Potassium 3.8 mmol/L (3.5-5.1); Sodium Level 140 mmol/L (136-145)
[2020-05-01 17:52] VITALS: BP 103/71; PULSE 78; RESP 18; O2SAT 94
[2020-05-01] MEDS: predniSONE 20 MG Tablet 60 MG PO (18:37)
[2020-05-01 18:38] VITALS: BP 102/70; PULSE 91; RESP 20
== END 2020-05-01 18:51 | disposition home or self-care (01) ==
PROVIDERS: Emergency Provider Student in an Organized Health Care Education/Training Program; PCP Family Medicine
DX: G51.0 Bell's palsy (principal); J45.909 Unspecified asthma, uncomplicated; F41.9 Anxiety disorder, unspecified; F32.9 Major depressive disorder, single episode, unspecified; Z79.899 Other long term (current) drug therapy
CPT/HCPCS: 70450; 71045; 80048; 82962; 84484; 85025; 85610; 85730; 93005; 99285; A4216

== ENCOUNTER 2020-10-16 05:01 | Emergency (ER) | payer MEDICARE, MEDICAID, SELFPAY ==
[2020-10-16 05:03] VITALS: BP 98/64; PULSE 69; RESP 15; TEMP 36.4; O2SAT 100; BMI 21.9
--- NOTE | 2020-10-16 05:20 | ED.VIS.GI ---
HPI HPI - GI History of Present Illness Chief Complaint: Abd Pain Narrative Narrative: 30-year-old female with history of IBS-C presents with diffuse abdominal cramping, nausea, burning in her stomach. She states that she ate pizza for dinner before going to bed. She states that she woke up with crampy abdominal pain. She states that she normally does not have frequent bowel movements and has a history of constipation. She does note that she did go yesterday and had a soft normal bowel movement. She denies black or bloody stool. She denies fever or chills. Patient has not vomited. [facility] Medical History Abdominal pain Anxiety Asthma Cervicitis Constipation Depression Home Medications polyethylene glycol 3350 17 gram/dose oral powder 17 gm PO QDAY g 07/25/17 [History Last Taken Unknown] lamotrigine 25 mg PO BID 05/01/20 [History Last Taken Unknown] prednisone 60 mg PO DAILY #15 tab 05/01/20 [Rx Last Taken Unknown] valacyclovir 500 mg PO DAILY #14 tab 05/01/20 [Rx Last Taken Unknown] amitriptyline 25 mg PO QHS 10/16/20 [History Last Taken Unknown] ondansetron 4 mg PO Q8H PRN PRN #10 tab 10/16/20 [Rx Last Taken Unknown] Allergy/AdvReac Type Severity Reaction Status Date / Time No Known Allergies Allergy Verified 10/16/20 05:08 Family History Mother Asthma Heart disease Hypertension Kidney disease Seizures Father Cancer Throat Surgical History Hx of section Social History Smoking Status: Never smoker second hand exposure: No alcohol intake: never substance use type: does not use caffeine: No what type of physical activity do you participate in: none frequency: does not exercise seatbelt use: always ROS ROS ED Constitutional Constitutional ED: Denies chills, fever(s) or sweats Eyes Eyes: Denies blurry vision or change in vision ENT ENT ED: Denies ear pain, rhinorrhea or sore throat Cardiovascular Cardiovascular: Denies chest pain, palpitations or racing heartbeat Respiratory/Chest Respiratory/Chest: Denies cough, dyspnea or sputum Gastrointestinal Gastrointestinal: Reports abdominal pain and nausea; Denies constipation, diarrhea or vomiting Genitourinary Genitourinary ED: Denies dysuria, hematuria or urinary frequency Musculoskeletal Musculoskeletal: Denies arthralgias, myalgias or neck pain Integumentary Denies abscess, Abrasions or rash Neurologic Neurologic: Denies headache(s), paresthesias or weakness Psychiatric Psychiatric: Denies anxiety, depression, suicidal ideation or suicidal thoughts Endocrine Endocrinology: Denies polydipsia or polyuria EXAM Physical Exam Const Vital Signs: 10/16/20 05:03 Temperature 97.6 F L Temperature Source Temporal Pulse Rate 69 Respiratory Rate 15 Blood Pressure 98/64 Blood Pressure Mean 75 Pulse Ox 100 Oxygen Delivery Method Room Air Positive well nourished General Appearance ED: NAD; Negative for pallor HEENT Reports normocephalic, head/scalp atraumatic and moist mucous membranes Eyes PERRL and EOMs intact bilaterally Neck no lymphadenopathy and supple Chest Wall inspection of chest normal and palpation of chest normal Resp normal respiratory effort and clear to auscultation bilaterally Auscultation: Negative for rales, rhonchi or wheezes Cardio regular rate and regular rhythm GI normal to inspection, nondistended, normoactive bowel sounds and non-distended GI Narrative: Generalized mild tenderness to palpation in all quadrants. Abdomen is nonperitoneal. Palpation: soft Narrative: Deferred Back/Spine no CVA tenderness Extremity normal to inspection General Extremety ED: Yes edema and tenderness General Extremity: edema Neuro oriented x3 and CN's II-XII intact bilaterally Sensorium / Orientation: alert Motor Exam: strength 5/5 throughout Psych mental status grossly normal Attitude: No agitated Skin no rashes or lesions noted and no wounds General Skin Exam: Negative for jaundice or pallor MDM MDM MDM Narrative Medical decision making narrative: Patient's lab work-up is normal. Urinalysis negative for infection. Given her history of constipation I did check an acute abdominal series which shows a large stool burden and no acute cardiopulmonary process on my interpretation. Patient counseled on findings and will be given magnesium citrate for home. She is counseled to take Pepcid [id number] for dyspepsia. Patient is given magnesium citrate for home. Impression: 1. Abdominal pain 2. Constipation Lab Data Attestation: I reviewed the patient's lab results. Labs: Laboratory Results - last 24 hr 10/16/20 10/16/20 10/16/20 05:05 05:05 05:05 WBC 6.7 RBC 4.14 L Hgb 10.9 L Hct 35.4 L MCV 85.5 MCH 26.3 L MCHC 30.8 L RDW Std Deviation 44.9 H RDW Coeff of Devorah 14.3 Plt Count 252 MPV 10.1 Immature Gran % (Auto) 0.300 Neut % (Auto) 55.2 Lymph % (Auto) 33.4 [place] % (Auto) 9.8 Eos % (Auto) 1.0 Baso % (Auto) 0.3 Absolute Neuts (auto) 3.7 Absolute Lymphs (auto) 2.24 Nucleated RBC % 0 Sodium 140 Potassium 3.7 Chloride 109 H Carbon Dioxide 27.0 Anion Gap 4 L BUN 9 Creatinine 0.80 Estim Creat Clear Calc 85.06 Est GFR (MDRD) Af Amer 108 Est GFR (MDRD) Non-Af 89 BUN/Creatinine Ratio 11.2 Glucose 86 Calcium 8.5 Total Bilirubin 0.20 AST 16 ALT 17 Alkaline Phosphatase 43 L Total Protein 7.0 Albumin 3.6 Globulin 3.4 Albumin/Globulin Ratio 1.1 Lipase 176 Urine Color Yellow Urine Clarity Clear Urine pH 6.5 Ur Specific Tatums 1.010 Urine Protein Negative Urine Glucose (UA) Normal Urine Ketones Negative Urine Occult Blood 25 H Urine Nitrite Negative Urine Bilirubin Negative Urine Urobilinogen Normal Ur Leukocyte Esterase 25 H Urine RBC 0 SEEN Urine WBC 0-5 SEEN Ur Squamous Epith Cells 0 SEEN Urine Bacteria RARE Urine Mucus 0 SEEN Urine Test Negative Radiography Diagnostic Testing: Radiology Impression Acute Abdomen Series 10/16/20 05:45 IMPRESSION: No evidence of acute cardiopulmonary process. Large stool burden as can be seen with constipation. Scoliosis. at 0631 Reported and signed by: Tolu Stanley MD Electronically Signed: Tolu Stanley MD at 6:29 EDT Tel , Service support , Discharge Plan Triage Chief Complaint: Abd Pain ED Provider: Campos Neff Dx/Rx/DC Orders Instructions: ED Constipation (Adult) Prescriptions: New ondansetron 4 mg tablet,disintegrating 4 mg PO Q8H PRN PRN (Reason: Nausea) Qty: 10 RF: 0 No Action polyethylene glycol 3350 [Miralax] 17 gram/dose powder 17 gm PO QDAY RF: 0 lamotrigine 25 MG tablet 25 mg PO BID RF: 0 prednisone 20 MG tablet 60 mg PO DAILY Qty: 15 RF: 0 valacyclovir 500 MG tablet 500 mg PO DAILY Qty: 14 RF: 0 amitriptyline 25 mg Tablet 25 mg PO QHS RF: 0 Primary Care Provider: Miquel Santos Referrals: Miquel Santos MD [Primary Care Provider] - Disposition Disposition: Home, Self Care
[2020-10-16] MEDS: Famotidine 200 MG/20 ML MDV 20 MG in 0.9% Normal Saline (Pres. free 8 ML 300 MG IV (05:33)
[2020-10-16 05:36] LABS: Mucous, Urine 0 SEEN /hpf (<or=2+); Red Blood Cells-Urine 0 SEEN /hpf (0-5); Squamous Epithelial Cells - UA 0 SEEN /hpf (5-10)
[2020-10-16 05:37] LABS: Absolute Lymphocyte Count 2.24 X10^3/uL (0.83-4.51); Absolute Neutrophil Count 3.7 X10^3/uL (2.0-7.7); Basophil# 0.02 X10^3/uL; Basophil% 0.3 % (0-1); Eosinophil# 0.07 X10^3/uL; Hematocrit 35.4 % (37-47); Hemoglobin 10.9 g/dL (12.0-15.0); Lymphocyte # 2.24 X10^3/ul (0.83-4.51); Lymphocyte % 33.4 % (19-41); Mean Corp Hgb Conc 30.8 g/dL (32-36); Mean Corpuscular Hgb 26.3 pg (27.0-32.0); Mean Corpuscular Volume 85.5 fL (81-99); Mean Platelet Vol. 10.1 fl (6.2-12.0); Monocyte# 0.66 X10^3/uL; Monocyte% 9.8 % (0-10); NRBC Flagged by Analyzer 0 % (0-5); Neutrophil % 55.2 % (47-70); Platelet Count 252 K/mm3 (150-450); RBC Distribution Width CV 14.3 % (11.6-14.6); RBC Distribution Width SD 44.9 fl (35.1-43.9); Red Blood Count 4.14 M/mm3 (4.2-5.4); White Blood Count 6.7 K/mm3 (4.4-11.0)
[2020-10-16 05:38] LABS: Color, Urine Yellow (Yellow); Glucose, Dipstick Normal (Normal); Ketone-Dipstick Negative (Negative); Leukocyte Esterase-Dipstick 25 /ul (Negative); Nitrite-Dipstick Negative (Negative); Occult Blood-Urine 25 /ul (Negative); Protein-Dipstick Negative (Negative); Urine Bilirubin Dipstick Negative (Negative); Urine Clarity Clear (Clear); Urine Urobilinogen Normal (Normal); Urine pH 6.5 (5.0 - 8.0)
[2020-10-16 05:43] LABS: Internal QC Validated? YES +Cl - CLEAR BKGD; Pregnancy, Urine Negative Negative
[2020-10-16 05:45] LABS: White Blood Cells 0-5 SEEN /hpf (0-5)
--- NOTE | 2020-10-16 05:45 | RAD_ITS ---
HISTORY: Constipation EXAMINATION/TECHNIQUE: XR Abdomen Series W/ Chest 1 View: COMPARISON: None FINDINGS: --Chest: LINES/DEVICES: None. LUNGS: No consolidation, edema or effusion. No pneumothorax. MEDIASTINUM AND CARDIOVASCULAR STRUCTURES: Cardiac silhouette not enlarged. Central airways and mediastinal contour are unremarkable. BONES AND SOFT TISSUES: No acute findings. Levocurvature of the thoracolumbar junction. --Abdomen: LINES AND TUBES: None. BOWEL GAS PATTERN: Non-obstructive. No bowel or stomach distention. Large colonic stool burden. FREE AIR: None visualized. ORGANOMEGALY: Not seen. CALCIFICATIONS: No abnormal calcifications observed. BONES AND SOFT TISSUES: No acute findings. Dextrocurvature of the lumbar spine with rightward rotation RAD/Acute Abdomen Inc Chest IMPRESSION: No evidence of acute cardiopulmonary process. Large stool burden as can be seen with constipation. Scoliosis. at 0631 Reported and signed by: Tolu Stanley MD Electronically Signed: Tolu Stanley MD at 6:29 EDT Tel , Service support ,
[2020-10-16 05:46] LABS: Bacteria RARE /hpf (None Seen)
[2020-10-16 05:49] LABS: ALB/GLOB Ratio 1.1 RATIO (0.9-2.4); AST(SGOT) 16 U/L (15-37); Alanine Aminotransfer ALT/SGPT 17 U/L (13-56); Albumin, Serum 3.6 g/dL (3.2-5.0); Alkaline Phosphatase 43 U/L (45-117); Anion Gap 4 (5-15); BUN 9 mg/dL (7-18); BUN/Creat Ratio 11.2 RATIO (10-20); Calcium,Total 8.5 mg/dL (8.5-10.1); Chloride 109 mmol/L (98-107); EST Glomerular Filtration Rate 89 mL/min (>60); Est Glom Filt Rate - Afr Amer 108 mL/min (>60); Estimated Creatinine Clearance 85.06 ml/min; Globulin 3.4 g/dL (2.2-4.2); Glucose 86 mg/dL (74-106); Lipase 176 U/L (73-393); Potassium 3.7 mmol/L (3.5-5.1); Sodium Level 140 mmol/L (136-145)
[2020-10-16] MEDS: Magnesium Citrate 300 ML PO (07:21)
[2020-10-16 07:23] VITALS: BP 98/64; PULSE 69; RESP 15; O2SAT 95
== END 2020-10-16 07:23 | disposition home or self-care (01) ==
PROVIDERS: Emergency Provider Student in an Organized Health Care Education/Training Program; PCP Family Medicine
DX: K59.00 Constipation, unspecified (principal); F41.9 Anxiety disorder, unspecified; J45.909 Unspecified asthma, uncomplicated; F32.9 Major depressive disorder, single episode, unspecified; Z79.899 Other long term (current) drug therapy
CPT/HCPCS: 74022; 80053; 81001; 81025; 83690; 85025; 99283; A4216; J3490

== ENCOUNTER → 2021-02-23 16:45 | Outpatient (CLI) | payer MEDICARE, MEDICAID, SELFPAY ==
[2021-02-23 17:43] LABS: Absolute Lymphocyte Count 2.49 X10^3/uL (0.83-4.51); Absolute Neutrophil Count 3.8 X10^3/uL (2.0-7.7); Basophil# 0.02 X10^3/uL; Basophil% 0.3 % (0-1); Eosinophil# 0.06 X10^3/uL; Eosinophils% 0.9 % (0-5); Hematocrit 33.7 % (37-47); Hemoglobin 10.3 g/dL (12.0-15.0); Lymphocyte # 2.49 X10^3/ul (0.83-4.51); Lymphocyte % 36.1 % (19-41); Mean Corp Hgb Conc 30.6 g/dL (32-36); Mean Corpuscular Hgb 25.1 pg (27.0-32.0); Mean Corpuscular Volume 82.2 fL (81-99); Mean Platelet Vol. 9.9 fl (6.2-12.0); Monocyte# 0.51 X10^3/uL; Monocyte% 7.4 % (0-10); NRBC Flagged by Analyzer 0 % (0-5); Neutrophil % 55.2 % (47-70); Platelet Count 272 K/mm3 (150-450); RBC Distribution Width CV 15.5 % (11.6-14.6); RBC Distribution Width SD 47.1 fl (35.1-43.9); White Blood Count 6.9 K/mm3 (4.4-11.0)
[2021-02-23 18:16] LABS: Vitamin B12 272 pg/mL (211-911)
[2021-02-23 18:21] LABS: T4 Free Direct 0.88 ng/dL (0.76-1.46); Thyroid Stim Hormone (TSH) 0.97 uIU/mL (0.358-3.74)
[2021-02-24 09:04] LABS: Ferritin 5 ng/mL (8-252); Iron 20 ug/dL (50-170); Iron Binding Capacity,Total 503 ug/dL (250-450)
== END ==
PROVIDERS: PCP Family Medicine; Referring Provider Family Medicine; Visit Provider Family Medicine
DX: D64.9 Anemia, unspecified (principal); R53.83 Other fatigue
CPT/HCPCS: 36415; 82306; 82607; 82728; 83540; 83550; 84439; 84443; 85025

== ENCOUNTER 2021-04-06 10:27 | Outpatient (CLI) | payer MEDICARE, OTHER, MEDICAID, SELFPAY ==
[2021-04-06 12:12] LABS: Absolute Lymphocyte Count 2.03 X10^3/uL (0.83-4.51); Absolute Neutrophil Count 2.1 X10^3/uL (2.0-7.7); Basophil# 0.02 X10^3/uL; Basophil% 0.4 % (0-1); Eosinophil# 0.03 X10^3/uL; Eosinophils% 0.6 % (0-5); Hematocrit 36.1 % (37-47); Hemoglobin 10.8 g/dL (12.0-15.0); Lymphocyte # 2.03 X10^3/ul (0.83-4.51); Lymphocyte % 43.6 % (19-41); Mean Corp Hgb Conc 29.9 g/dL (32-36); Mean Corpuscular Hgb 24.7 pg (27.0-32.0); Mean Corpuscular Volume 82.4 fL (81-99); Mean Platelet Vol. 10.4 fl (6.2-12.0); Monocyte% 10.7 % (0-10); NRBC Flagged by Analyzer 0 % (0-5); Neutrophil # 2.08 X10^3/uL (2.7-7.7); Neutrophil % 44.7 % (47-70); Platelet Count 234 K/mm3 (150-450); RBC Distribution Width CV 15.9 % (11.6-14.6); RBC Distribution Width SD 48.5 fl (35.1-43.9); Red Blood Count 4.38 M/mm3 (4.2-5.4); White Blood Count 4.7 K/mm3 (4.4-11.0)
[2021-04-06 12:49] LABS: Ferritin 5 ng/mL (8-252); Iron 57 ug/dL (50-170); Iron Binding Capacity,Total 464 ug/dL (250-450)
== END 2021-04-06 23:59 | disposition short-term general hospital (02) ==
LOC: MFPLAB 10:31
PROVIDERS: PCP Family Medicine; Referring Provider Family Medicine; Visit Provider Family Medicine
DX: D50.9 Iron deficiency anemia, unspecified (principal)
CPT/HCPCS: 36415; 82728; 83540; 83550; 85025

== ENCOUNTER 2021-06-26 15:37 | Outpatient (CLI) | payer MEDICARE, OTHER, MEDICAID, SELFPAY ==
--- NOTE | 2021-06-26 15:41 | RAD_ITS ---
EXAM: XR CHEST, 2 VIEWS : 1990 CLINICAL INDICATION: left sternal mass/protrusion, firm, tender with palpation TECHNIQUE: Frontal and lateral views of the chest. This report was created using [employer] report generation technology. COMPARISON: 10/16/20 FINDINGS: LUNGS AND PLEURAL SPACES: Unremarkable. No consolidation or edema. No pneumothorax. No effusion. HEART: Unremarkable. Cardiac silhouette not enlarged. MEDIASTINUM: Central airways and mediastinal contour are unremarkable. BONES/JOINTS: Unremarkable. SOFT TISSUES: Unremarkable. RAD/Chest PA and Lateral IMPRESSION: No radiographic evidence of acute cardiopulmonary disease. No abnormalities identified involving the sternum/chest wall. at 0519 Reported and signed by: Stanley Inman MD Electronically Signed: Stanley Inman MD at 5:18 EDT ,
== END 2021-06-26 23:59 | disposition home or self-care (01) ==
PROVIDERS: PCP Family Medicine; Referring Provider Registered Nurse; Visit Provider Registered Nurse
DX: M89.8X8 Other specified disorders of bone, other site (principal)
CPT/HCPCS: 71046

== ENCOUNTER → 2021-10-19 | Outpatient (CLI) | payer MEDICARE, OTHER, MEDICAID, SELFPAY ==
[2021-10-19 15:02] LABS: Absolute Lymphocyte Count 2.16 X10^3/uL (0.83-4.51); Absolute Neutrophil Count 4.1 X10^3/uL (2.0-7.7); Basophil# 0.01 X10^3/uL; Basophil% 0.1 % (0-1); Eosinophil# 0.04 X10^3/uL; Eosinophils% 0.6 % (0-5); Hematocrit 34.6 % (37-47); Hemoglobin 10.9 g/dL (12.0-15.0); Lymphocyte # 2.16 X10^3/ul (0.83-4.51); Lymphocyte % 31.7 % (19-41); Mean Corp Hgb Conc 31.5 g/dL (32-36); Mean Corpuscular Hgb 26.8 pg (27.0-32.0); Mean Corpuscular Volume 85.2 fL (81-99); Mean Platelet Vol. 9.9 fl (6.2-12.0); Monocyte# 0.46 X10^3/uL; Monocyte% 6.8 % (0-10); NRBC Flagged by Analyzer 0 % (0-5); Neutrophil # 4.12 X10^3/uL (2.7-7.7); Neutrophil % 60.5 % (47-70); Platelet Count 294 K/mm3 (150-450); RBC Distribution Width CV 14.6 % (11.6-14.6); RBC Distribution Width SD 45.3 fl (35.1-43.9); Red Blood Count 4.06 M/mm3 (4.2-5.4); White Blood Count 6.8 K/mm3 (4.4-11.0)
[2021-10-19 15:34] LABS: ALB/GLOB Ratio 1.1 RATIO (0.9-2.4); AST(SGOT) 15 U/L (15-37); Alanine Aminotransfer ALT/SGPT 17 U/L (13-56); Albumin, Serum 3.8 g/dL (3.2-5.0); Alkaline Phosphatase 41 U/L (45-117); Anion Gap 7 (5-15); BUN 19 mg/dL (7-18); BUN/Creat Ratio 21.4 RATIO (10-20); Chloride 109 mmol/L (98-107); Creatinine, Serum 0.89 mg/dL (0.55-1.02); EST Glomerular Filtration Rate 79 mL/min (>60); Est Glom Filt Rate - Afr Amer 95 mL/min (>60); Ferritin 4 ng/mL (8-252); Globulin 3.5 g/dL (2.2-4.2); Glucose 89 mg/dL (74-106); Iron 20 ug/dL (50-170); Iron Binding Capacity,Total 475 ug/dL (250-450); Potassium 3.7 mmol/L (3.5-5.1); Protein, Total 7.3 g/dL (6.4-8.2); Sodium Level 141 mmol/L (136-145)
== END | disposition home or self-care (01) ==
LOC: MFPLAB 14:08
PROVIDERS: PCP Family Medicine; Referring Provider Family Medicine; Visit Provider Family Medicine
DX: D50.9 Iron deficiency anemia, unspecified (principal); E55.9 Vitamin D deficiency, unspecified
CPT/HCPCS: 36415; 80053; 82306; 82728; 83540; 83550; 85025

== ENCOUNTER → 2022-01-04 | Outpatient (CLI) | payer MEDICARE, OTHER, MEDICAID, SELFPAY ==
[2022-01-04 17:39] LABS: Absolute Lymphocyte Count 1.93 X10^3/uL (0.83-4.51); Absolute Neutrophil Count 4.3 X10^3/uL (2.0-7.7); Basophil# 0.02 X10^3/uL; Basophil% 0.3 % (0-1); Eosinophil# 0.08 X10^3/uL; Eosinophils% 1.1 % (0-5); Hematocrit 34.7 % (37-47); Hemoglobin 10.6 g/dL (12.0-15.0); Lymphocyte # 1.93 X10^3/ul (0.83-4.51); Lymphocyte % 27.3 % (19-41); Mean Corp Hgb Conc 30.5 g/dL (32-36); Mean Corpuscular Hgb 26.4 pg (27.0-32.0); Mean Corpuscular Volume 86.3 fL (81-99); Mean Platelet Vol. 9.4 fl (6.2-12.0); Monocyte# 0.71 X10^3/uL; NRBC Flagged by Analyzer 0 % (0-5); Neutrophil # 4.32 X10^3/uL (2.7-7.7); Platelet Count 222 K/mm3 (150-450); RBC Distribution Width CV 14.9 % (11.6-14.6); RBC Distribution Width SD 47.5 fl (35.1-43.9); Red Blood Count 4.02 M/mm3 (4.2-5.4); White Blood Count 7.1 K/mm3 (4.4-11.0)
[2022-01-04 18:29] LABS: ALB/GLOB Ratio 0.9 RATIO (0.9-2.4); AST(SGOT) 11 U/L (15-37); Alanine Aminotransfer ALT/SGPT 13 U/L (13-56); Albumin, Serum 3.7 g/dL (3.2-5.0); Alkaline Phosphatase 47 U/L (45-117); Anion Gap 7 (5-15); BUN 14 mg/dL (7-18); BUN/Creat Ratio 17.9 RATIO (10-20); Calcium,Total 8.8 mg/dL (8.5-10.1); Chloride 109 mmol/L (98-107); Creatinine, Serum 0.78 mg/dL (0.55-1.02); EST Glomerular Filtration Rate 91 mL/min (>60); Est Glom Filt Rate - Afr Amer 110 mL/min (>60); Ferritin 15 ng/mL (8-252); Globulin 3.9 g/dL (2.2-4.2); Glucose 84 mg/dL (74-106); Iron 17 ug/dL (50-170); Iron Binding Capacity,Total 439 ug/dL (250-450); Potassium 3.7 mmol/L (3.5-5.1); Protein, Total 7.6 g/dL (6.4-8.2); Sodium Level 141 mmol/L (136-145)
[2022-01-04 20:54] LABS: Vitamin D,25 Hydroxy 23.1 ng/mL
== END | disposition home or self-care (01) ==
LOC: LAB 17:20
PROVIDERS: PCP Family Medicine; Visit Provider Family Medicine
DX: D50.9 Iron deficiency anemia, unspecified (principal); E55.9 Vitamin D deficiency, unspecified
CPT/HCPCS: 36415; 80053; 82306; 82728; 83540; 83550; 85025

== ENCOUNTER 2022-07-10 19:05 | Emergency (ER) | payer MEDICARE, MEDICAID, SELFPAY ==
[2022-07-10 19:06] VITALS: BP 81/67; PULSE 70; RESP 18; TEMP 36.1; O2SAT 99; BMI 22.4
--- NOTE | 2022-07-10 21:45 | EX.ED.DYSGE1 ---
HPI History of Present Illness Chief Complaint: Constipation Informant: patient Narrative Narrative: Patient presents with constipation. She states this is really a long-term problem for her. But she ran out of MiraLAX about a month ago. Her bowels have slowed down since. She still gets bowel movements but they are small and hard and just not that productive. She has to strain quite a bit. No blood has been seen. She is still eating and drinking. Occasionally she will get cramping before she has to move her bowels but she is not having pain now. She has never had fevers or chills with this. No urinary symptoms. No vaginal discharge. She is on her menstrual cycle now and is normal timing. She denies any abdominal surgery other than 3 prior C-sections. Iron sulfate is on her med list but she is not currently on that. [facility] Medical History Abdominal pain Anemia Anxiety Asthma Cervicitis Constipation Depression History of IBS Home Medications prednisone 20 mg tablet 60 mg PO DAILY #15 tabs 05/01/20 [Rx Last Taken Unknown] cholecalciferol (vitamin D3) 10 mcg (400 unit) capsule 10 mcg PO DAILY 03/03/21 [History Last Taken Unknown] ferrous sulfate 325 mg (65 mg iron) tablet,delayed release 325 mg PO 03/03/21 [History Last Taken Unknown] ondansetron 4 mg disintegrating tablet 4 mg PO Q8H PRN PRN Nausea #6 tabs 07/10/22 [Rx Last Taken Unknown] peg 3350-electrolytes 236 gram-22.74 gram-6.74 gram-5.86 gram solution (GaviLyte-G) 240 ml PO Q10M PRN #4,000 mL 07/10/22 [Rx Last Taken Unknown] Allergy/AdvReac Type Severity Reaction Status Date / Time No Known Allergies Allergy Verified 07/10/22 19:06 Family History Mother Asthma Heart disease Hypertension Kidney disease Seizures Father Cancer Throat Surgical History Hx of section Social History Smoking Status: Never smoker second hand exposure: No alcohol intake: never substance use type: does not use caffeine: No what type of physical activity do you participate in: none frequency: does not exercise seatbelt use: always ROS ROS ED ROS Narrative A complete review of systems was performed and is negative except as documented in the history of present illness. Some specific details below. Constitutional: No recent fevers or chills. She has not felt ill recently. EYE: No visual complaints or pain. ENT: No difficulty swallowing. No swelling. No pain. CV: No chest pain or palpitations. Respiratory: No dyspnea. No hemoptysis. No difficulty taking breaths. GI: Please see history of present illness. : No frequency dysuria or hematuria. Menstrual cycle now. Musculoskeletal: No recent trauma. No pains. Skin: No rash. Nondiaphoretic. Neuro: No weakness or numbness. Endocrine: No polyuria or polydipsia. EXAM Physical Exam Narrative Exam Narrative: CONSTITUTIONAL: Patient is nontoxic in appearance. The patient looks comfortable. She is pleasant. Carries on normal conversation. HEENT: No notable trauma. Mucous membranes moist. No sinus tenderness. No indication of pain with swallowing. EYES: No conjunctival injection. . CARDIOVASCULAR: Regular rate. Regular rhythm. No notable murmur. No JVD. RESPIRATORY: No respiratory distress. Breathing is unlabored. No wheezes. No rhonchi. No rales. GASTROINTESTINAL: Not distended. Bowel sounds are normal. No tenderness. No guarding. No rebound. No palpable mass. No bruit. Overall abdomen is benign. GENITOURINARY: No tenderness over the bladder. No CVA tenderness. MUSCULOSKELETAL: Atraumatic. No peripheral edema. No cord. No tenderness along the deep venous system. No asymmetry. NEUROLOGICAL: Patient is alert and appropriate. No focal deficit noted. SKIN: No noted rashes. No diaphoresis. PSYCHIATRIC: Patient is calm. Mood is appropriate. Const Vital Signs: 07/10/22 19:06 Temperature 96.9 F L Temperature Source Temporal Pulse Rate 70 Respiratory Rate 18 Blood Pressure 81/67 L Blood Pressure Mean 71 Pulse Ox 99 Oxygen Delivery Method Room Air MDM MDM MDM Narrative Medical decision making narrative: My independent interpretation of the patient's two-view x-ray of the abdomen shows increased stool throughout but no sign of ileus or obstruction. No free air. Final reading is large colonic stool burden as can be seen with constipation, similar in appearance to the October 16, 2020. I talked with patient about options. She needs to increase fluid in her diet. I recommend she use a fleets enema [id number]. She can try fleets Phospho-soda. But she may get benefit from a fleets oil retention enema as she states she gets pressure when she tries to move her bowels. She states that she has used magnesium citrate and it seems to help but does not fully empty her. This is not currently available easily. I will write for GoLytely solution. She states she sometimes gets nauseated if she drinks lots of liquids. For this reason I will write for some Zofran that she can take with the GoLytely so she can get a large amount of it in. I also recommend she warm it as it may be more effective. I do not think she needs blood work or any further work-up. This is a longstanding issue she is eating and drinking is afebrile and has a benign abdomen. Radiography Diagnostic Testing: Clinical Impression(s) from Imaging Studies KUB X-Ray 07/10/22 21:50 IMPRESSION: Large colonic stool burden as can be seen with constipation, similar in appearance to October 16, 2020 Non-obstructive bowel gas pattern. Electronically Signed: Tolu Stanley MD at 22:25 EDT Reading Location ID and State: [facility] / [place] Tel , Service support , Discharge Plan Triage Chief Complaint: Constipation ED Provider: Chago Billy Dx/Rx/DC Orders Clinical Impression: Constipation Instructions: ED Constipation (Adult) Prescriptions: New peg 3350-electrolytes [GaviLyte-G] 236-22.74-6.74 -5.86 gram recon soln 240 ml PO Q10M PRN Qty: 4000 0RF Rx Instructions: until fecal effluent is clear ondansetron [ondansetron] 4 mg tablet,disintegrating 4 mg PO Q8H PRN PRN (Reason: Nausea) Qty: 6 0RF No Action ferrous sulfate 325 mg (65 mg iron) tablet,delayed release (DR/EC) 325 mg PO cholecalciferol (vitamin D3) 10 mcg (400 unit) capsule 10 mcg PO DAILY prednisone 20 MG tablet 60 mg PO DAILY Qty: 15 0RF Primary Care Provider: Miquel Santos Referrals: Miquel Santos MD [Primary Care Provider] - 3-5 Days if not improving Activity Restrictions/Additional Instructions: Start back on MiraLAX. Disposition Disposition: Home, Self Care
--- NOTE | 2022-07-10 21:50 | RAD_ITS ---
INDICATION: Constipation -- Patient is on menstrual cycle now EXAMINATION/TECHNIQUE: X-RAY - XR Abdomen 1 View: 2 image AP abdomen COMPARISON: October 16, 2020 FINDINGS: BOWEL GAS PATTERN: Nonspecific non-obstructive bowel gas pattern. No focal stomach or bowel distention. Large colonic stool burden from cecum to rectum. FREE AIR: Not well assessed on a supine view. ORGANOMEGALY: Not seen. CALCIFICATIONS: No concerning calcifications. BONES AND SOFT TISSUES: . Dextrocurvature of the lumbar spine. Vaginal tampon noted. RAD/Abdomen Single View (Portable) IMPRESSION: Large colonic stool burden as can be seen with constipation, similar in appearance to October 16, 2020 Non-obstructive bowel gas pattern. Electronically Signed: Tolu Stanley MD at 22:25 EDT ,
[2022-07-10 22:50] VITALS: PULSE 70; RESP 18; O2SAT 99
== END 2022-07-10 23:03 | disposition home or self-care (01) ==
PROVIDERS: Emergency Provider Emergency Medicine; PCP Family Medicine; Visit Provider Emergency Medicine
DX: K59.00 Constipation, unspecified (principal); J45.909 Unspecified asthma, uncomplicated
CPT/HCPCS: 74018; 99282

== ENCOUNTER → 2024-10-08 | Outpatient (CLI) | payer MEDICAID, SELFPAY ==
[2024-10-08 18:18] LABS: Hematocrit 39.4 % (37-47); Hemoglobin 13.0 g/dL (12.0-15.0); Immature Granulocytes Count 0.020 X10^3/uL (0.0-0.0); Mean Corp Hgb Conc 33.0 g/dL (32-36); Mean Corpuscular Volume 89.3 fL (81-99); Mean Platelet Vol. 9.9 fl (6.2-12.0); NRBC Flagged by Analyzer 0 % (0-5); Platelet Count 245 K/mm3 (150-450); RBC Distribution Width CV 12.0 % (11.6-14.6); RBC Distribution Width SD 39.4 fl (35.1-43.9); Red Blood Count 4.41 M/mm3 (4.2-5.4); White Blood Count 7.5 K/mm3 (4.4-11.0)
[2024-10-08 19:09] LABS: AST(SGOT) 18 U/L (<=31); Alanine Aminotransfer ALT/SGPT 10 U/L (<=34); Albumin, Serum 4.4 g/dL (3.5-5.0); Alkaline Phosphatase 46 U/L (35-104); Anion Gap 12 (5-15); BUN 13 mg/dL (4-19); BUN/Creat Ratio 15.7 RATIO (10-20); Calcium,Total 9.5 mg/dL (7.6-11.0); Carbon Dioxide 23.2 mmol/L (21.0-32.0); Chloride 105 mmol/L (98-108); Ferritin 66 ng/mL (22-378); Globulin 2.4 g/dL (2.2-4.2); Glucose 78 mg/dL (70-99); Iron 104 ug/dL (50-170); Iron Binding Capacity,Total 314 ug/dL (250-450); Iron Binding Capacity,Unsat 210 ug/dL (228-428); Potassium 4.1 mmol/L (3.3-5.1); Vitamin B12 510 pg/mL (180-914); Vitamin D,25 Hydroxy 16.5 ng/mL (30-100)
[2024-10-08 19:28] LABS: FOLATES,SERUM (FOLIC ACID) 9.62 ng/mL (4.60-34.80)
== END | disposition home or self-care (01) ==
LOC: MFPLAB 16:41
PROVIDERS: PCP Family Medicine; Referring Provider Family Medicine; Visit Provider Family Medicine
DX: D64.9 Anemia, unspecified (principal); E55.9 Vitamin D deficiency, unspecified
CPT/HCPCS: 36415; 80053; 82306; 82607; 82728; 82746; 83540; 83550; 85025